=== PATIENT | female | born 1965 | race Caucasian/White ===

== ENCOUNTER 2016-09-28 14:39 | Observation (INO) | payer OTHER ==
[~2016-09-28] VITALS: Ht 154.9 cm; Wt 60.0 kg
[~2016-09-28 14:39] MED LIST: ADVAI100I PO; ALBUS PO; CITA20 PO; CLON.5 PO; DICY1TAB26 PO; DULE200A PO; MACR100C2 PO; MONT10TA2 PO; MONT4CHW2 CHEW; NAPR1TAB34 PO; OMEP20TA39 PO; TOPA100T8 PO; TOPI100 PO
[2016-09-28 14:44] VITALS: BP 154/65; PULSE 88; RESP 20; TEMP 97.9; O2SAT 100
--- NOTE | 2016-09-28 15:25 | PD ---
HPI Chief Complaint: Cardiac Complaint Time Seen by Provider: 15:25 Travel History International Travel<30 days: No Contact w/Intl Traveler<30days: No Traveled to known affect area: No History of Present Illness HPI 50-year-old female with a history of anxiety, depression, migraine headaches presents to the emergency department for evaluation of a 3 day history of heart palpitations and one-day history of chest pain. The patient states that for the past 3 days she has had intermittent heart palpitations, feeling as though her heart is racing and flip-flopping in her chest. States that this was aggravated with activities such as doing the dishes or the laundry area states that she was able to relieve the symptoms by taking an aspirin and lying down for a while. States that this morning she was still expressing the palpitations but now is also experiencing midsternal chest pressure and squeezing sensation. States that the chest pain is associated with lightheadedness, shortness of breath, nausea and a tingling sensation in her left arm and left jaw. She denies any swelling of the extremities, fever, chills, abdominal pain, vomiting, diarrhea, cough or cold symptoms. She denies any prior history of heart disease or ID. Denies any history of high blood pressure, high cholesterol, diabetes or blood clots. Denies any recent travel. Denies smoking history. States that her mother of a heart attack at age 53. Her father also had his first heart attack in his 60s. No other complaints. PFSH Past Medical History Asthma: Yes Anxiety: Yes Depression: Yes Cancer: No Cardiovascular Problems: Yes (HYPOTENSION) Diabetes: No Endocrine: No Fibromyalgia: Yes Gastrointestinal Disorders: Yes (GERD) Genitourinary: No Hepatitis: No Hiatal Hernia: No Immune Disorder: No Musculoskeletal: Yes (HERNIATED DISC) Neurologic: Yes (MIGRAINES) Psychiatric: Yes (DEPRESSION) Respiratory: Yes (ASTHMA) Migraines: Yes Thyroid Disease: No ?: Not Past Surgical History Abdominal Surgery: Yes (CHOLECYSTECTOMY) AICD: No Body Medical Devices: CERVICAL PLATE Cholecystectomy: Yes Gynecologic Surgery: Yes (HYSTERECTOMY) Hysterectomy: Yes Joint Replacement: No Pacemaker: No Other Surgery: Yes (SINUS SURGERY) Social History Alcohol Use: No Tobacco Use: No Substance Use: No Allergies-Medications (Allergen,Severity, Reaction): Coded Allergies: Latex (Verified Allergy, Mild, HIVES, 09/28/16) Zantac (Verified Allergy, Mild, HIVES, 09/28/16) Reported Meds & Prescriptions Reported Meds & Active Scripts Active Reported Topamax (Topiramate) 100 Mg Tab 100 Mg PO BID Omeprazole 40 Mg Cap 40 Mg PO DAILY Singulair (Montelukast Sodium) 10 Mg Tab 10 Mg PO HS Bentyl (Dicyclomine HCl) 10 Mg Cap 20 Mg PO TID Clonazepam 0.5 Mg Tab 0.5 Mg PO HS Citalopram (Citalopram Hydrobromide) 20 Mg Tab 20 Mg PO DAILY Advair Diskus Inh (Fluticasone-Salmeterol Inh) 100-50 Mcg/Blist Aer 1 Puff INH BID Rinse mouth after use. Review of Systems Except as stated in HPI: all other systems reviewed are Neg Physical Exam Narrative GENERAL: Well-nourished and well-developed pleasant female patient in no acute distress. She does appear to be in a mild amount of discomfort. SKIN: Warm and dry. HEAD: Normocephalic and atraumatic. EYES: No injection, drainage, or hyphema noted. PERRLA. EOMI. ENT: No nasal drainage noted. Oropharynx is clear. NECK: Supple and the trachea is midline. CARDIOVASCULAR: Regular rate and rhythm. RESPIRATORY: Breath sounds are equal bilaterally with no accessory muscle use, wheezing, rhonchi, or crackles. GASTROINTESTINAL: Abdomen is soft, non-tender, and nondistended. MUSCULOSKELETAL: No obvious deformities, swelling, cyanosis, or ecchymosis is present throughout the upper and lower extremities. Patient has full range of motion without any signs of neurovascular compromise. NEUROLOGICAL: Awake, alert, and oriented. Normal speech and gait. Cranial nerves are grossly intact. Data Data Last Documented VS Vital Signs Date Time Temp Pulse Resp B/P Pulse Ox O2 Delivery O2 Flow Rate FiO2 09/28/16 16:57 18 09/28/16 15:34 100 Room Air 09/28/16 14:44 97.9 88 154/65 Orders Electrocardiogram (09/28/16 14:54) Complete Blood Count With Diff (09/28/16 14:54) Ckmb (Isoenzyme) Profile (09/28/16 14:54) Troponin I (09/28/16 14:54) Chest, Single Ap (09/28/16 14:54) Iv Access Insert/Monitor (09/28/16 14:54) Ecg Monitoring (09/28/16 14:54) Oxygen Administration (09/28/16 14:54) Oximetry (09/28/16 14:54) Aspirin Chew (Aspirin Chew) (09/28/16 15:30) Nitroglycerin Sl (Nitrostat Sl) (09/28/16 15:30) Sodium Chlorid 0.9% 500 Ml Inj (Ns 500 M (09/28/16 15:30) Ondansetron Inj (Zofran Inj) (09/28/16 15:30) Aspirin Chew (Aspirin Chew) (09/28/16 15:45) Lipase (09/28/16 15:09) Comprehensive Metabolic Panel (09/28/16 15:09) Admit Order (Ed Use Only) (09/28/16 17:35) Acetamin-Hydrocod 325-5 Mg (Kelley 5-325 (09/28/16 17:45) Labs Laboratory Tests Test 09/28/16 15:09 White Blood Count 7.4 TH/MM3 Red Blood Count 4.64 MIL/MM3 Hemoglobin 14.5 GM/DL Hematocrit 41.8 % Mean Corpuscular Volume 90.1 FL Mean Corpuscular Hemoglobin 31.3 PG Mean Corpuscular Hemoglobin 34.8 % Concent Red Cell Distribution Width 11.8 % Platelet Count 289 TH/MM3 Mean Platelet Volume 7.8 FL Neutrophils (%) (Auto) 70.0 % Lymphocytes (%) (Auto) 24.1 % Monocytes (%) (Auto) 5.0 % Eosinophils (%) (Auto) 0.6 % Basophils (%) (Auto) 0.3 % Neutrophils # (Auto) 5.2 TH/MM3 Lymphocytes # (Auto) 1.8 TH/MM3 Monocytes # (Auto) 0.4 TH/MM3 Eosinophils # (Auto) 0.0 TH/MM3 Basophils # (Auto) 0.0 TH/MM3 CBC Comment DIFF FINAL Differential Comment Sodium Level 141 MEQ/L Potassium Level 3.7 MEQ/L Chloride Level 105 MEQ/L Carbon Dioxide Level 26.2 MEQ/L Anion Gap 10 MEQ/L Blood Urea Nitrogen 7 MG/DL Creatinine 0.85 MG/DL Estimat Glomerular Filtration 71 ML/MIN Rate Random Glucose 95 MG/DL Calcium Level 9.6 MG/DL Total Bilirubin 0.4 MG/DL Aspartate Amino Transf 81 U/L (AST/SGOT) Alanine Aminotransferase 78 U/L (ALT/SGPT) Alkaline Phosphatase 136 U/L Total Creatine Kinase 49 U/L Troponin I LESS THAN 0.02 NG/ML Total Protein 8.3 GM/DL Albumin 4.5 GM/DL Lipase 131 U/L MDM Medical Decision Making Medical Screen Exam Complete: Yes Emergency Medical Condition: Yes Differential Diagnosis ACS versus angina versus pleurisy versus anxiety Narrative Course 50-year-old female presents to the emergency department for evaluation of heart palpitations, chest pain radiating to the left arm and left face with nausea and lightheadedness. Patient is afebrile, vital signs are stable. Physical examination is unremarkable. IV access is obtained, labs have been drawn and sent. Patient is placed on cardiac telemetry and pulse oximetry monitoring. EKG shows sinus rhythm with no acute ST elevations or depressions. Patient is administered aspirin 243 mg and nitroglycerin sublingually. CBC is unremarkable. CMP shows slightly elevated LFTs but otherwise unremarkable. Troponin is less than 0.02 Chest x-ray is negative. Patient states that she did have some improvement of symptoms after receiving nitroglycerin tablets. He has remained stable while here in the emergency department. Labs are reassuring. Cardiac enzymes are negative, EKG is unremarkable. Patient will be placed in chest pain center for repeat cardiac enzymes, EKGs and possible stress testing. I discussed the case with my attending physician Dr. Woodard who is aware of the patients history, physical examination findings, and treatment plan. Diagnosis Primary Impression: Chest pain Qualified Code: R07.9 - Chest pain, unspecified type Admitting Information Admitting Physician Requests: Deepti Gonzalez Sep 28, 2016 15:25
[2016-09-28] MEDS ORDERED: ASPIRIN 81 MG CHEW TAB PO ONE ×2 (15:30→15:45)
[2016-09-28] MEDS ORDERED: ONDANSETRON HCL 4 MG/2 ML VIAL IV PUSH ONE (15:30)
[2016-09-28] MEDS ORDERED: SODIUM CHLORID 0.9% 500 ML INJ 500 ML IV ONE (15:30)
[2016-09-28 15:34] VITALS: RESP 18; O2SAT 100
[2016-09-28] MEDS: NITROGLYCERIN 0.4 MG SL 25 TABS/BTL SL SCH ×3 (15:40→16:56)
[2016-09-28] MEDS ORDERED: CITA20TA4 PO (15:48)
[2016-09-28] MEDS ORDERED: DICY10 PO (15:48)
[2016-09-28] MEDS ORDERED: ADVA100A INH (15:48)
[2016-09-28] MEDS ORDERED: MONT10TA2 PO (15:48)
[2016-09-28] MEDS ORDERED: TOPA100T11 PO (15:48)
[2016-09-28] MEDS ORDERED: OMEP40CA2 PO (15:48)
[2016-09-28] MEDS ORDERED: CLON0.5T PO (15:48)
--- NOTE | 2016-09-28 15:57 | RADRPT ---
EXAM DATE/TIME: 09/28/2016 15:36 [facility] COMPARISON: No previous studies available for comparison. INDICATIONS : Chest pain today. MEDICAL HISTORY : Gastroesophageal reflux disease. Asthma. Hypotension. SURGICAL HISTORY : Hysterectomy. Cholecystectomy. ENCOUNTER: Initial ACUITY: 1 day PAIN SCORE: 8/10 LOCATION: Bilateral chest FINDINGS: A single view of the chest demonstrates the lungs to be symmetrically aerated without evidence of mas s, infiltrate or effusion. The cardiomediastinal contours are unremarkable. Partially imaged lower cervical spine hardware. Osseous structures are intact. CONCLUSION: 1. No acute cardiopulmonary disease. Maxim Sequeira MD on September 28, 2016 at 15:54 Board Certified Radiologist. This report was verified electronically.
[2016-09-28 16:07] LABS: AUTOMATED NEUTROPHIL # 5.2 TH/MM3 (1.8-7.7); BASOPHIL % 0.3 % (0.0-2.0); EOSINOPHIL % 0.6 % (0.0-4.0); HEMATOCRIT 41.8 % (35.0-46.0); HEMO FLAGS DIFF FINAL; LYMPH % 24.1 % (9.0-44.0); LYMPHOCYTE # 1.8 TH/MM3 (1.0-4.8); MEAN CELL VOLUME 90.1 FL (80.0-100.0); MEAN CORPUSCULAR HEMOGLOBIN 31.3 PG (27.0-34.0); MEAN CORPUSCULAR HGB CONC 34.8 % (32.0-36.0); PLATELET COUNT 289 TH/MM3 (150-450); RED BLOOD COUNT 4.64 MIL/MM3 (4.00-5.30); RED CELL DISTRIBUTION WIDTH 11.8 % (11.6-17.2); WHITE BLOOD COUNT 7.4 TH/MM3 (4.0-11.0)
[2016-09-28 16:43] LABS: CREATINE KINASE 49 U/L (26-192)
[2016-09-28 17:14] LABS: GLOMERULAR FILTRATION RATE 71 ML/MIN (>89)
[2016-09-28 17:16] LABS: ALT (GPT) 78 U/L (10-53); AST (GOT) 81 U/L (15-37)
[2016-09-28 17:17] LABS: ALKALINE PHOSPHATASE 136 U/L (45-117); TOTAL BILIRUBIN ADULT 0.4 MG/DL (0.2-1.0)
[2016-09-28 17:31] LABS: ANION GAP 10 MEQ/L (5-15); BICARBONATE 26.2 MEQ/L (21.0-32.0); BLOOD UREA NITROGEN 7 MG/DL (7-18); CHLORIDE 105 MEQ/L (98-107); POTASSIUM 3.7 MEQ/L (3.5-5.1); SODIUM (NA) 141 MEQ/L (136-145)
[2016-09-28] MEDS ORDERED: ONDANSETRON HCL 4 MG/2 ML VIAL IV PRN (17:45)
[2016-09-28] MEDS ORDERED: SODIUM CHLORIDE 0.9% FLUSH 10 ML FLUSH IV FLUSH PRN (17:45)
[2016-09-28] MEDS ORDERED: ACETAMINOPHEN/HYDROcodone 325 MG/5 MG TAB PO ONE (17:45)
[2016-09-28] MEDS ORDERED: ACETAMINOPHEN 500 MG CPLT PO PRN (17:45)
[2016-09-28 17:50] VITALS: BP 149/66; PULSE 76; RESP 18; O2SAT 99
[2016-09-28 18:59] LABS: CREATINE KINASE 42 U/L (26-192)
[2016-09-28 19:57] VITALS: BP 113/69; PULSE 60; RESP 18; TEMP 97.8; O2SAT 100
[2016-09-28] MEDS: SODIUM CHLORIDE 0.9% FLUSH 10 ML FLUSH IV FLUSH SCH (21:24)
[2016-09-28 22:01] LABS: CREATINE KINASE 36 U/L (26-192)
[2016-09-28 23:24] VITALS: BP 126/76; PULSE 76; RESP 18; TEMP 98; O2SAT 74
[2016-09-29] VITALS (8 sets, daily range): BP systolic 117–133; BP diastolic 61–69; PULSE 55–77; RESP 17–18; TEMP 97.9–98.1; O2SAT 98–100
[2016-09-29] MEDS ORDERED: MORPHINE SULFATE 4 MG/ML INJ IV ONE (02:15)
--- NOTE | 2016-09-29 07:55 | HHI.HP ---
HPI Primary Care Physician Rolo Carr MD Chief Complaint Chest pain and palpitations History of Present Illness 50-year-old female past medical history migraines, asthma, anxiety, depression, and GERD presents to emergency room for further evaluation. Endorses constant waxing and waning of palpitations and chest pain. Had a routine teachers' aide appointment yesterday told MD about chest palpitations and chest pain was directed to come to ER. Palpitations began Sunday, described as constant that varied in intensity. No known precipitating factors and denies past feelings of palpitations. Chest discomfort onset began yesterday upon awakening. Located substernally. Described as a squeezing pain. Pain radiated to her left shoulder, left arm and left side of neck causing areas to become numb. No known trauma or injury. Duration has been constant waxing and waning in intensity. Associated symptoms include occasional shortness of breath described as "I cannot catch my breath," nausea and diaphoresis. No known precipitating or relieving factors. Has been using intermittent full-strength aspirin with some relief. Denies any previous chest pain in the past. Review of Systems General: No fatigue,weakness, fever, chills, or recent illness. States she's been in her general state of health other than stated above. HEENT: No BENITEZ, no vision changes, no nasal congestion or drainage, no dysphasia CV: As stated above. Currently has chest pressure and feelings of palpitations. Endorses palpitations since admission to hospital. No dizziness RESP: No SOB, cough, wheeze, or recent URI. History of asthma, states asthma is stable according to her teachers' aide which she seen yesterday. GI: Nausea has improved. Loose stools daily since Sunday. No vomiting, pain, distention, melena, or blood in the stool. No change in appetite. : No dysuria, urgency, frequency, or hematuria EXT: No lower leg edema, no paraesthesias MS: No discomfort or change in ROM NEURO: No change in memory, dizziness, difficulty with balance, LOC, motor/ sensory deficits PSYCH: History of anxiety and depression and stable on current medications. SKIN: No rashes, no concerning lesions Past Family Social History Allergies: Coded Allergies: Latex (Verified Allergy, Mild, HIVES, 09/28/16) Zantac (Verified Allergy, Mild, HIVES, 09/28/16) Past Medical History Migraines, asthma, GERD, herniated disc, anxiety, depression Past Surgical History Cholecystectomy, hysterectomy, neck surgery, right rotator cuff repair Reported Medications Active Reported Topamax (Topiramate) 100 Mg Tab 100 Mg PO BID Omeprazole 40 Mg Cap 40 Mg PO DAILY Singulair (Montelukast Sodium) 10 Mg Tab 10 Mg PO HS Bentyl (Dicyclomine HCl) 10 Mg Cap 20 Mg PO TID Clonazepam 0.5 Mg Tab 0.5 Mg PO HS Citalopram (Citalopram Hydrobromide) 20 Mg Tab 20 Mg PO DAILY Advair Diskus Inh (Fluticasone-Salmeterol Inh) 100-50 Mcg/Blist Aer 1 Puff INH BID Rinse mouth after use. Spriva inhaler Active Ordered Medications Current Medications Medications (Trade) Dose Ordered Sig/Mechelle Route Start Time Stop Time Status Last Admin (Tylenol) 500 mg Q4H PRN PO 09/28/16 17:45 (Zofran Inj) 4 mg Q6H PRN IV 09/28/16 17:45 Family History Mother from [place] age 53. Father heart blockages at age 65, past with [place] at 74. No siblings with early onset cardiovascular disease. Social History No known diabetes, hypertension, or hyperlipidemia. Lifelong nonsmoker. Denies any alcohol or illegal drug use. Endorses sedentary lifestyle, disabled. Past cardiac testing None Physical Exam Vital Signs Vital Signs Date Time Temp Pulse Resp B/P Pulse Ox O2 Delivery O2 Flow Rate FiO2 09/29/16 07:45 98.1 66 17 117/61 100 09/29/16 05:21 97.9 77 18 119/64 99 09/29/16 01:59 98.0 58 18 121/69 98 09/29/16 00:12 55 09/28/16 23:24 98.0 76 18 126/76 74 09/28/16 19:57 97.8 60 18 113/69 100 09/28/16 18:22 18 09/28/16 17:50 76 18 149/66 99 Room Air 09/28/16 16:57 18 09/28/16 15:34 100 Room Air 09/28/16 15:34 18 100 Room Air 09/28/16 14:44 97.9 88 20 154/65 100 Room Air Physical Exam GENERAL: Alert WN, WD, NAD, mildly anxious, female HEAD: NC, AT EYES: Sclera clear, pupils equal and round ENT: Mucous membranes pink and moist NECK: Supple, no masses, trachea midline CV: RRR, without murmur, rub, gallop, no JVD, S1-S2 no S3-S4. RESP: Clear lungs throughout bilateral, no crackles, wheeze, rhonchi, symmetrical chest rise, nonlabored, able to speak in full sentences ABD: Soft, NT, ND, no masses, positive bowel tones BACK: No CVAT EXT: Pulses +24, no dependent edema MS: Normal tone 4 extremities, nontender, no obvious deformities, full range of motion NEURO: CN II through CN XII grossly intact, motor strength 5/5, gait WNL PSYCH: A+O 3, pleasant affect, appropriate speech, appropriate mood and affect , insight and judgment SKIN: Normal turgor, normal texture, no lesions, no rashes Laboratory Laboratory Tests Test 09/28/16 09/28/16 09/28/16 15:09 18:05 21:21 White Blood Count 7.4 Red Blood Count 4.64 Hemoglobin 14.5 Hematocrit 41.8 Mean Corpuscular Volume 90.1 Mean Corpuscular Hemoglobin 31.3 Mean Corpuscular Hemoglobin 34.8 Concent Red Cell Distribution Width 11.8 Platelet Count 289 Mean Platelet Volume 7.8 Neutrophils (%) (Auto) 70.0 Lymphocytes (%) (Auto) 24.1 Monocytes (%) (Auto) 5.0 Eosinophils (%) (Auto) 0.6 Basophils (%) (Auto) 0.3 Neutrophils # (Auto) 5.2 Lymphocytes # (Auto) 1.8 Monocytes # (Auto) 0.4 Eosinophils # (Auto) 0.0 Basophils # (Auto) 0.0 CBC Comment DIFF FINAL Differential Comment Sodium Level 141 Potassium Level 3.7 Chloride Level 105 Carbon Dioxide Level 26.2 Anion Gap 10 Blood Urea Nitrogen 7 Creatinine 0.85 Estimat Glomerular Filtration 71 Rate Random Glucose 95 Calcium Level 9.6 Total Bilirubin 0.4 Aspartate Amino Transf 81 (AST/SGOT) Alanine Aminotransferase 78 (ALT/SGPT) Alkaline Phosphatase 136 Total Creatine Kinase 49 42 36 Troponin I LESS THAN 0.02 LESS THAN 0.02 LESS THAN 0.02 Total Protein 8.3 Albumin 4.5 Lipase 131 Result Diagram: 09/28/16 1509 09/28/16 1509 Imaging Last Impressions Chest X-Ray 09/28/16 1454 Signed Impressions: Service Date/Time: , September 28, 2016 15:36 - CONCLUSION: 1. No acute cardiopulmonary disease. Maxim Sequeira MD Course EKGs Normal sinus bradycardic rhythm, no ST or T-segment changes Cardiac rhythm monitoring reviewed-no arrhythmias or tachy rhythms recorded during admission. Assessment and Plan Assessment and Plan #1 Chest painadmitted to chest pain center. Ruled out with serial EKGs and cardiac enzymes. Seen and evaluated by Dr. Danya Snow. Chemical stress test ordered as patient states she is unable to walk on treadmill due to chronic back pain. If stress test unremarkable will discharge later this afternoon with follow-up with PCP. #2 Musculoskeletal pain-Toradol 30 mg IV 1 dose, when discharged will provide with prescription strength ibuprofen 5 days followed by 5 days over-the- counter strength ibuprofen, instructed to take with food. May use heating pad to affected area. #3 Migrainescontinue Topamax #4 GERDcontinue omeprazole #5 Asthmacontinue Singulair, Advair #6 Depressioncontinue citalopram 12:25 Antonina scan results reviewed with Dr. Snow. Will DC this afternoon on aspirin and a vasodilator. Follow-up to PCP in 1 week. Brooke Longoria Sep 29, 2016 07:55
[2016-09-29] MEDS ORDERED: NITROGLYCERIN 0.4 MG SL 25 TABS/BTL SL PRN (08:00)
[2016-09-29] MEDS: SODIUM CHLORIDE 0.9% FLUSH 10 ML FLUSH IV FLUSH SCH (08:21)
[2016-09-29] MEDS ORDERED: KETOROLAC TROMETHAMINE 30 MG/ML (IVP) VIAL IV PUSH ONE (08:30)
[2016-09-29] MEDS ORDERED: ASPIRIN 325 MG TAB PO SCH (09:00)
[2016-09-29] MEDS ORDERED: REGADENOSON INJ 0.4 MG/5 ML SYR ONE (09:51)
--- NOTE | 2016-09-29 12:02 | RADRPT ---
EXAM DATE/TIME: 09/29/2016 09:31 [facility] COMPARISON: No previous studies available for comparison. INDICATIONS : Chest pain with palpitations. Angina. Abnormal EKG. DOSE: 25.8 mCi Tc99m Myoview at stress. 8.1 mCi Tc99m Myoview at rest. 0.4 mg Lexiscan STRESS SYMPTOMS: Nausea and short of breath. EJECTION FRACTION: > 70% MEDICAL HISTORY : Hypertension. SURGICAL HISTORY : Cholecystectomy. Hysterectomy. Inguinal hernia repair. ENCOUNTER: Initial ACUITY: 1 day PAIN SCALE: 2/10 LOCATION: Bilateral chest TECHNIQUE: The patient underwent pharmacologic stress with infusion of prescribed dose. Continuous ECG tracing was monitored during stress. Gated SPECT imaging was performed after stress and conventional SPECT i maging was performed at rest. The examination was performed on a SPECT/CT scanner, both attenuation and non-corrected datasets were reviewed. FINDINGS: The best perfused myocardium at stress is the septum of followed by the inferior wall. There is mini mal redistribution in the mid anterior wall extending to the apex. In spite of this there is normal wall motion. Ejection fraction is 70%. CONCLUSION: Minimal stress-induced redistribution of borderline significance with normal wall motion. RISK CATEGORY: Low (<1% Annual Mortality Rate) Miguel Angel Zambrano MD FACR on September 29, 2016 at 11:58 Board Certified Radiologist. This report was verified electronically.
[2016-09-29] MEDS ORDERED: AMLO2.5T PO (13:14)
[2016-09-29] MEDS ORDERED: ASPI81CH CHEW (13:14)
--- NOTE | 2016-09-29 13:15 | HHI.DCPOC ---
Discharge Care Plan Diagnosis: (1) Atypical chest pain (2) Abnormal stress test Goals to Promote Your Health * To prevent worsening of your condition and complications * To maintain your health at the optimal level Directions to Meet Your Goals Take your medications as prescribed Follow your dietary instruction Follow activity as directed Keep your appointments as scheduled Take your immunizations and boosters as scheduled If your symptoms worsen call your PCP, if no PCP go to Urgent Care Center or Emergency Room Smoking is Dangerous to Your Health. Avoid second hand smoke Call the 24-hour hour crisis hotline for domestic abuse at Brooke Longoria Sep 29, 2016 13:15
[2016-09-29] MEDS ORDERED: CITALOPRAM HYDROBROMIDE 20 MG TAB PO SCH (13:30)
[2016-09-29] MEDS ORDERED: TOPIRAMATE 100 MG TAB PO SCH (13:30)
[2016-09-29] MEDS ORDERED: DICYCLOMINE HCL 10 MG CAP PO SCH (13:30)
[2016-09-29] MEDS ORDERED: IBUP800T23 PO (13:30)
[2016-09-29] MEDS ORDERED: BUDESONIDE-FORMOTEROL 80/4.5 MCG INHALER INH SCH (13:45)
[2016-09-29] MEDS ORDERED: PANTOPRAZOLE SOD 40 MG DELAYED RELEASE TAB PO SCH (13:45)
--- NOTE | 2016-09-29 15:16 | TR ---
Date Performed: 09/29/2016 Time Performed: 10:21:37 DOCTOR: Danya Snow DRUG LIST: CLINICAL HISTORY: CHEST PAIN REASON FOR TEST: REASON FOR ENDING: OBSERVATION: CONCLUSION: Lexiscan stress test was performed under standard four minute protocol. Radionuclid e was injected one minute prior to ending the test. No electrocardiographic abormalities were present to suggest ischemia. Nuclear imaging and interpretation are pending. COMMENTS:
--- NOTE | 2016-09-29 15:18 | EKG ---
Date Performed: 09/29/2016 Time Performed: 02:06:03 PTAGE: 50 years EKG: SINUS BRADYCARDIA POSSIBLE RIGHT VENTRICULAR CONDUCTION DELAY BORDERLINE ECG Since PREVIOUS TRACING , no significant change noted PREVIOUS TRACIN09/28/2016 21.00 DOCTOR: Danya Snow Interpretating Date/Time 09/29/2016 15:17:18
--- NOTE | 2016-09-29 15:22 | EKG ---
Date Performed: 09/28/2016 Time Performed: 21:00:26 PTAGE: 50 years EKG: Sinus rhythm NORMAL ECG Since PREVIOUS TRACING , no significant change noted PREVIOUS TRACIN09/28/2016 18.10 DOCTOR: Danya Snow Interpretating Date/Time 09/29/2016 15:21:45
--- NOTE | 2016-09-29 15:23 | EKG ---
Date Performed: 09/28/2016 Time Performed: 18:10:00 PTAGE: 50 years EKG: SINUS BRADYCARDIA BORDERLINE ECG RSR' Since PREVIOUS TRACING , no significant change noted PREVIOUS TRACIN09/28/2016 14.58 DOCTOR: Danya Snow Interpretating Date/Time 09/29/2016 15:22:39
--- NOTE | 2016-09-29 15:23 | EKG ---
Date Performed: 09/28/2016 Time Performed: 14:58:51 PTAGE: 50 years EKG: Sinus rhythm LOW QRS VOLTAGE IN PRECORDIAL LEADS INCOMPLETE RIGHT BUNDLE BRANCH BLOCK BORDERLINE ECG NO PREVIOUS TRACING DOCTOR: Danya Snow Interpretating Date/Time 09/29/2016 15:22:54
[2016-09-29] MEDS ORDERED: MONTELUKAST SODIUM 10 MG TAB PO SCH (21:00)
== END 2016-09-29 14:26 | disposition home or self-care (01) ==
LOC: NEPE 14:39 → NEDA 17:36 → NEPHCDU 18:40
PROVIDERS: ADMIT Internal Medicine Interventional Cardiology; ATTEND Internal Medicine Interventional Cardiology
DX: R07.89 Other chest pain (principal); J45.909 Unspecified asthma, uncomplicated; K21.9 Gastro-esophageal reflux disease without esophagitis; G43.909 Migraine, unspecified, not intractable, without status migrainosus; M79.7 Fibromyalgia; G89.29 Other chronic pain; M54.9 Dorsalgia, unspecified; F32.9 Major depressive disorder, single episode, unspecified; F41.9 Anxiety disorder, unspecified; Z88.8 Allergy status to other drugs, medicaments and biological substances; Z91.040 Latex allergy status; Z79.51 Long term (current) use of inhaled steroids; Z82.49 Family history of ischemic heart disease and other diseases of the circulatory system
CPT/HCPCS: 71010; 78452; 80053; 82550; 83690; 84484; 85025; 93005; 93017; 96361; 96374; 96375; 96376; 99285; A9502; G0378; J1885; J2270; J2405; J2785; J7040

== ENCOUNTER → 2016-11-03 | Day surgery (SDC) | payer OTHER ==
[~2016-11-03] VITALS: Ht 154.9 cm; Wt 59.0 kg
[~2016-11-03] MED LIST changes: +ACETAMINOPHEN 1000 MG/100 ML VIAL IV ONE; +ACETAMINOPHEN/HYDROcodone 325 MG/5 MG TAB ONE; +ADVA100A INH; -ADVAI100I PO; -ALBUS PO; +AMLO2.5T PO; +APREPITANT 40 MG CAP ONE; +ASPI81CH CHEW; +CHLORHEXIDINE GLUCONATE 2 % 1 PACK (2 CLOTHS) TOPICAL PRN; -CITA20 PO; +CITA20TA4 PO; -CLON.5 PO; +CLON0.5T PO; +DICY10 PO; -DICY1TAB26 PO; -DULE200A PO; +HYDROmorphone HCL PF 1 MG/ML VIAL ONE; +IBUP800T23 PO; +INSULIN HUMAN REGULAR 1,000 UNITS/10 ML VIAL SQ PRN; +KETOROLAC TROMETHAMINE 30 MG/ML (IVP) VIAL ONE; +LACTATED RINGER'S 1000 ML IV PRN; -MACR100C2 PO; +MEPERIDINE HCL 25 MG/ML VIAL ONE; +METOPROLOL TARTRATE 25 MG TAB PO PRN; +MIDAZOLAM HCL 2 MG/2 ML VIAL ONE; -MONT4CHW2 CHEW; +MORPHINE SULFATE 4 MG/ML INJ ONE; -NAPR1TAB34 PO; -OMEP20TA39 PO; +OMEP40CA2 PO; +ONDANSETRON HCL 4 MG/2 ML VIAL IV PUSH ONE; +ONDANSETRON HCL 4 MG/2 ML VIAL ONE; +POVIDONE IODINE 5% (ANTISEPSIS KIT) 4 APPLICATIONS EACH NARE PRN; +PROPOFOL 200 MG/20 ML AMP IV ONE; +SODIUM CHLORID 0.9% 500 ML IV PRN; +TOPA100T11 PO; -TOPA100T8 PO; -TOPI100 PO; +VITA250T5 PO; +fentaNYL CITRATE 250 MCG/5 ML AMP ONE
[2016-11-03 11:23] VITALS: BP 129/85; PULSE 74; RESP 16; TEMP 97.8; O2SAT 100
[2016-11-03 16:15] VITALS: BP 94/48; PULSE 57; RESP 16; TEMP 97.9; O2SAT 98
--- NOTE | 2016-11-03 21:51 | MP ---
cc: ANGEL MERLOS M.D. DATE OF SURGERY 11/03/[address] Angel Merlos PREOPERATIVE DIAGNOSIS Bilateral carpal tunnel syndrome. POSTOPERATIVE DIAGNOSIS Bilateral carpal tunnel syndrome. PROCEDURE Bilateral carpal tunnel release. PROCEDURE IN DETAIL The patient was first placed on the operating table in the supine position and adequate general anesthesia was administered by the anesthesiologist. Both upper extremities were prepped and draped in the usual sterile fashion. A time-out was called and the patient's name, location and procedure fully verified. Beginning first with the right hand an Esmarch bandage was used to exsanguinate the right upper extremity and a pneumatic tourniquet was inflated at the forearm to 200. The curved incision was then made over the carpal tunnel and then taken down through the subcutaneous tissues. Bleeding points were nil. The palmaris tendon area was reflected and dissected free and retracted to the ulnar side and the transverse carpal ligament which was extremely thick was then transected longitudinally beginning from proximal to distal direction along the ulnar border of the median nerve. After complete release the nerve was inspected and found to be flattened and compressed but intact. It was irrigated with normal saline solution. The wound was then closed with interrupted simple sutures of 4-0 nylon. Xeroform gauze was applied over the wound, a bulky dressing was applied over this at which time the tourniquet was deflated after 15 minutes. Reexamination of the fingers revealed adequate return of circulation. Sponge count, needle count and instrument counts were reported correct x2 for the right upper extremity. Attention was then turned to the opposite left upper extremity where an identical procedure was carried out with the exception of the fact that the tourniquet did not appear to be adequately sufficient at 200 and did eventually have to be raised to 300. We did encounter some oozing prior to that and this was controlled adequately with the electrocautery. The median nerve appeared to be similar, being obviously severely flattened and compressed. The wound was then closed after irrigation in a similar fashion with interrupted sutures of 4-0 nylon. Once again, same dressing was applied to the left hand and wrist. That tourniquet was then deflated and examination of the fingertips revealed adequate return of circulation. The tourniquet time was 20 minutes. Both procedures were tolerated well. The patient was transferred to the recovery room in satisfactory and stable condition. MD BERTHA Haji /2:02 PM /9:45 PM
== END | disposition home or self-care (01) ==
LOC: PHSDC 10:47
PROVIDERS: ATTEND Orthopaedic Surgery
DX: G56.03 Carpal tunnel syndrome, bilateral upper limbs (principal); J45.909 Unspecified asthma, uncomplicated; E78.00 Pure hypercholesterolemia, unspecified; K21.9 Gastro-esophageal reflux disease without esophagitis
CPT/HCPCS: 01810; 64721; J0131; J1170; J1885; J2175; J2250; J2270; J2405; J3010; J7120; J8501

== ENCOUNTER 2017-03-02 14:35 | Emergency (ER) | payer OTHER ==
[~2017-03-02] VITALS: Ht 154.9 cm; Wt 59.0 kg
[~2017-03-02 14:35] MED LIST changes: -ACETAMINOPHEN 1000 MG/100 ML VIAL IV ONE; -ACETAMINOPHEN/HYDROcodone 325 MG/5 MG TAB ONE; -APREPITANT 40 MG CAP ONE; +ASPI-516 CHEW; -ASPI81CH CHEW; -CHLORHEXIDINE GLUCONATE 2 % 1 PACK (2 CLOTHS) TOPICAL PRN; -HYDROmorphone HCL PF 1 MG/ML VIAL ONE; +IBUP1TAB7 PO; -IBUP800T23 PO; -INSULIN HUMAN REGULAR 1,000 UNITS/10 ML VIAL SQ PRN; -KETOROLAC TROMETHAMINE 30 MG/ML (IVP) VIAL ONE; -LACTATED RINGER'S 1000 ML IV PRN; -MEPERIDINE HCL 25 MG/ML VIAL ONE; -METOPROLOL TARTRATE 25 MG TAB PO PRN; -MIDAZOLAM HCL 2 MG/2 ML VIAL ONE; -MORPHINE SULFATE 4 MG/ML INJ ONE; -ONDANSETRON HCL 4 MG/2 ML VIAL IV PUSH ONE; -ONDANSETRON HCL 4 MG/2 ML VIAL ONE; -POVIDONE IODINE 5% (ANTISEPSIS KIT) 4 APPLICATIONS EACH NARE PRN; -PROPOFOL 200 MG/20 ML AMP IV ONE; -SODIUM CHLORID 0.9% 500 ML IV PRN; -TOPA100T11 PO; +TOPI100 PO; -fentaNYL CITRATE 250 MCG/5 ML AMP ONE
[2017-03-02 14:44] VITALS: BP 134/81; PULSE 83; RESP 18; TEMP 98.3; O2SAT 99
[2017-03-02 14:45] VITALS: RESP 18; O2SAT 98
[2017-03-02] MEDS ORDERED: SODIUM CHLORIDE 0.9% FLUSH 10 ML FLUSH IVF PRN (15:00)
--- NOTE | 2017-03-02 15:13 | PD ---
HPI Chief Complaint: Seizure Time Seen by Provider: 14:48 Travel History International Travel<30 days: No Contact w/Intl Traveler<30days: No Traveled to known affect area: No History of Present Illness HPI 51-year-old female with history of seizure disorder, presents after having a witnessed tonic-clonic seizure by her family. Paramedics arrived, the patient was not actively seizing. They state that she was postictal. Report was that she had less than 2 minutes of tonic-clonic activity. The patient is still slightly postictal. She states that she has not been taking her Dilantin because it is difficult to feel because of the expenses. She does have a prescription for it however has not filled it. She is unable tell me when her last seizure was. She reports pain towards the back of her head. Report was that she did not fall and strike her head. There was no reported incontinence. PFSH Past Medical History Asthma: Yes Anxiety: Yes Depression: Yes Heart Rhythm Problems: No Cancer: No Cardiac Catheterization: No Cardiovascular Problems: Yes (2 abnormal ekgs, less functioning valve in Feb 2016) High Cholesterol: Yes Congestive Heart Failure: No Diabetes: No Endocrine: No Fibromyalgia: Yes Gastrointestinal Disorders: Yes (GERD) Genitourinary: No Hepatitis: No Hiatal Hernia: Yes Immune Disorder: No Musculoskeletal: Yes (HERNIATED DISC CERVICAL/LUMBAR, ARTHRITIS) Neurologic: Yes (MIGRAINES) Psychiatric: Yes (DEPRESSION) Respiratory: Yes (ASTHMA) Migraines: Yes Thyroid Disease: No ?: Unknown Past Surgical History Abdominal Surgery: Yes (CHOLECYSTECTOMY) AICD: No Body Medical Devices: CERVICAL PLATE Cardiac Surgery: No Cholecystectomy: Yes Coronary Artery Bypass Graft: No Ear Surgery: No Endocrine Surgery: No Eye Surgery: No Genitourinary Surgery: No Gynecologic Surgery: Yes (HYSTERECTOMY) Hysterectomy: Yes Joint Replacement: No Oral Surgery: No Pacemaker: No Thoracic Surgery: No Other Surgery: Yes (SINUS SURGERY) Social History Alcohol Use: No Tobacco Use: No Substance Use: No Allergies-Medications (Allergen,Severity, Reaction): Coded Allergies: latex (Unverified Allergy, Mild, HIVES, 12/05/16) ranitidine (Unverified Allergy, Mild, HIVES, 12/05/16) Reported Meds & Prescriptions Reported Meds & Active Scripts Active Phenytoin Extended 100 Mg Cap 100 Mg PO TID Ibuprofen 800 Mg Tab 800 Mg PO Q8H PRN 5 Days Amlodipine (Amlodipine Besylate) 2.5 Mg Tab 5 Mg PO DAILY Aspirin 81 Mg Chew 81 Mg CHEW DAILY Reported Vitamin B-12 (Cyanocobalamin) 250 Mcg Tab 250 Mcg PO DAILY Topamax (Topiramate) 100 Mg Tab 100 Mg PO BID Omeprazole 40 Mg Cap 40 Mg PO DAILY Singulair (Montelukast Sodium) 10 Mg Tab 10 Mg PO HS Bentyl (Dicyclomine HCl) 10 Mg Cap 20 Mg PO TID Clonazepam 0.5 Mg Tab 0.5 Mg PO HS Citalopram (Citalopram Hydrobromide) 20 Mg Tab 20 Mg PO DAILY Advair Diskus Inh (Fluticasone-Salmeterol Inh) 100-50 Mcg/Blist Aer 1 Puff INH BID Rinse mouth after use. Review of Systems Except as stated in HPI: all other systems reviewed are Neg General / Constitutional: No: Fever, Chills HENT: Positive: Headaches, No: Neck Pain (stated occiput) Cardiovascular: No: Chest Pain or Discomfort, Palpitations, Irregular Rhythm Respiratory: No: Cough, Shortness of Breath Gastrointestinal: No: Nausea, Vomiting, Abdominal Pain Genitourinary: No: Dysuria, Incontinence Musculoskeletal: No: Weakness, Pain Skin: No Rash, No Itching, No Alopecia Neurologic: Positive: Headache (posterior occiput), Seizures, Other (postictal) , No: Change in Mentation Physical Exam Narrative GENERAL: Well developed well-nourished female in no acute rest her distress. SKIN: Focused skin assessment warm/dry. HEAD: Atraumatic. Normocephalic. EYES: No scleral icterus. No injection or drainage. ENT: No nasal bleeding or discharge. Mucous membranes pink and moist. There are no tongue lacerations. NECK: Trachea midline. Supple. CARDIOVASCULAR: Regular rate and rhythm. No murmur appreciated. RESPIRATORY: No accessory muscle use. Clear to auscultation. Breath sounds equal bilaterally. GASTROINTESTINAL: Abdomen soft, non-tender, nondistended. Hepatic and splenic margins not palpable. MUSCULOSKELETAL: No obvious deformities. No clubbing. No cyanosis. No edema. NEUROLOGICAL: Awake and mildly postictal. No obvious cranial nerve deficits. Motor grossly within normal limits. Normal speech. PSYCHIATRIC: Appropriate mood and affect; insight and judgment normal. Data Data Last Documented VS Vital Signs Date Time Temp Pulse Resp B/P (MAP) Pulse Ox O2 Delivery O2 Flow Rate FiO2 03/02/17 14:45 18 98 Room Air 03/02/17 14:44 98.3 83 134/81 (98) Orders Orders Complete Blood Count With Diff (03/02/17 14:49) Phenytoin (Dilantin) (03/02/17 14:49) Ct Brain W/O Iv Contrast(Rout) (03/02/17 ) Blood Glucose (03/02/17 14:49) Ecg Monitoring (03/02/17 14:49) Iv Access Insert/Monitor (03/02/17 14:49) Oximetry (03/02/17 14:49) Comprehensive Metabolic Panel (03/02/17 14:49) Sodium Chloride 0.9% Flush (Ns Flush) (03/02/17 15:00) Phenytoin Inj (Dilantin Inj) (03/02/17 16:30) Morphine Inj (Morphine Inj) (03/02/17 16:30) Potassium Chloride (Kcl) (03/02/17 16:30) Labs Laboratory Tests Test 03/02/17 14:45 White Blood Count 7.8 TH/MM3 Red Blood Count 4.35 MIL/MM3 Hemoglobin 14.1 GM/DL Hematocrit 40.9 % Mean Corpuscular Volume 94.1 FL Mean Corpuscular Hemoglobin 32.5 PG Mean Corpuscular Hemoglobin Concent 34.6 % Red Cell Distribution Width 13.2 % Platelet Count 281 TH/MM3 Mean Platelet Volume 7.3 FL Neutrophils (%) (Auto) 63.8 % Lymphocytes (%) (Auto) 27.5 % Monocytes (%) (Auto) 6.2 % Eosinophils (%) (Auto) 1.8 % Basophils (%) (Auto) 0.7 % Neutrophils # (Auto) 5.0 TH/MM3 Lymphocytes # (Auto) 2.2 TH/MM3 Monocytes # (Auto) 0.5 TH/MM3 Eosinophils # (Auto) 0.1 TH/MM3 Basophils # (Auto) 0.1 TH/MM3 CBC Comment DIFF FINAL Differential Comment Blood Urea Nitrogen 11 MG/DL Creatinine 0.87 MG/DL Random Glucose 111 MG/DL Total Protein 7.4 GM/DL Albumin 3.9 GM/DL Calcium Level 8.6 MG/DL Alkaline Phosphatase 95 U/L Aspartate Amino Transf (AST/SGOT) 19 U/L Alanine Aminotransferase (ALT/SGPT) 33 U/L Total Bilirubin 0.4 MG/DL Sodium Level 140 MEQ/L Potassium Level 3.3 MEQ/L Chloride Level 111 MEQ/L Carbon Dioxide Level 19.3 MEQ/L Anion Gap 10 MEQ/L Estimat Glomerular Filtration Rate 68 ML/MIN Phenytoin (Dilantin) Level LESS THAN 0.4 MCG/ML MDM Medical Decision Making Medical Screen Exam Complete: Yes Emergency Medical Condition: Yes Differential Diagnosis Breakthrough seizure versus subtherapeutic Dilantin level versus metabolic derangement. Narrative Course 81-year-old female history seizure disorder, presents with reported seizure activity. The patient was postictal on scene by paramedics. She was slightly postictal when she arrived however she has now appropriate and awake. Patient reported headache. She states she gets headaches after seizures. She was given 2 mg of morphine. CAT scan shows no evidence acute findings. Elect lites are within normal limits. Serum Dilantin level was 0. She reports that she's been having difficult time filling the Dilantin. I've written her prescription for phenytoin and informed her that this may be less expensive than the brand name Dilantin. She's been loaded with 1 g of Dilantin. She'll be discharged home and told to follow up with her neurologist. Diagnosis Primary Impression: Seizure Additional Impression: Subtherapeutic serum dilantin level Med/Other Pt SpecificInfo: Prescription(s) given Scripts Phenytoin Extended (Phenytoin Extended) 100 Mg Cap 100 MG PO TID for Control Seizures, #90 CAP 0 Refills Prov: Joe Martinez MD 03/02/17 Disposition: 01 DISCHARGE HOME Condition: Stable Joe Martinez MD Mar 02, 2017 15:13
[2017-03-02 15:24] LABS: BASOPHIL # 0.1 TH/MM3 (0-0.2); BASOPHIL % 0.7 % (0.0-2.0); EOSINOPHIL # 0.1 TH/MM3 (0-0.4); EOSINOPHIL % 1.8 % (0.0-4.0); HEMATOCRIT 40.9 % (35.0-46.0); HEMO FLAGS DIFF FINAL; LYMPH % 27.5 % (9.0-44.0); LYMPHOCYTE # 2.2 TH/MM3 (1.0-4.8); MEAN CELL VOLUME 94.1 FL (80.0-100.0); MEAN CORPUSCULAR HEMOGLOBIN 32.5 PG (27.0-34.0); MEAN CORPUSCULAR HGB CONC 34.6 % (32.0-36.0); MONO % 6.2 % (0.0-8.0); NEUT % 63.8 % (16.0-70.0); PLATELET COUNT 281 TH/MM3 (150-450); RED BLOOD COUNT 4.35 MIL/MM3 (4.00-5.30); RED CELL DISTRIBUTION WIDTH 13.2 % (11.6-17.2); WHITE BLOOD COUNT 7.8 TH/MM3 (4.0-11.0)
[2017-03-02 15:40] LABS: ANION GAP 10 MEQ/L (5-15); AST (GOT) 19 U/L (15-37); BICARBONATE 19.3 MEQ/L (21.0-32.0); BLOOD UREA NITROGEN 11 MG/DL (7-18); CHLORIDE 111 MEQ/L (98-107); GLOMERULAR FILTRATION RATE 68 ML/MIN (>89); POTASSIUM 3.3 MEQ/L (3.5-5.1); SODIUM (NA) 140 MEQ/L (136-145)
[2017-03-02 15:43] LABS: ALKALINE PHOSPHATASE 95 U/L (45-117); ALT (GPT) 33 U/L (10-53); TOTAL BILIRUBIN ADULT 0.4 MG/DL (0.2-1.0)
--- NOTE | 2017-03-02 16:23 | RADRPT ---
EXAM DATE/TIME: 03/02/2017 15:56 [facility] COMPARISON: No previous studies available for comparison. INDICATIONS : Seizure, headache. RADIATION DOSE: 28.42 CTDIvol (mGy) MEDICAL HISTORY : Cardiovascular disease. Epilepsy SURGICAL HISTORY : Hysterectomy. Cholecystectomy. ENCOUNTER: Initial ACUITY: 1 day PAIN SCALE: 0/10 LOCATION: cranial TECHNIQUE: Multiple contiguous axial images were obtained of the head. Using automated exposure control and adj ustment of the mA and/or kV according to patient size, radiation dose was kept as low as reasonably a chievable to obtain optimal diagnostic quality images. DICOM format image data is available electro nically for review and comparison. FINDINGS: CEREBRUM: The ventricles are normal for age. No evidence of midline shift, mass lesion, hemorrhage or acute in farction. No extra-axial fluid collections are seen. POSTERIOR FOSSA: The cerebellum and brainstem are intact. The 4th ventricle is midline. The cerebellopontine angle i s unremarkable. EXTRACRANIAL: The visualized portion of the orbits is intact. Bilateral maxillary sinus surgery. Paranasal sinuses are grossly clear. SKULL: The calvaria is intact. No evidence of skull fracture. CONCLUSION: 1. No acute intracranial abnormality. Maxim Sequeira MD on March 02, 2017 at 16:21 Board Certified Radiologist. This report was verified electronically.
[2017-03-02] MEDS ORDERED: MORPHINE SULFATE 2 MG/ML INJ IV PUSH ONE (16:30)
[2017-03-02] MEDS ORDERED: PHENYTOIN INJ 1,000 MG in SODIUM CHLORIDE 0.9% INJ 100 ML IV ONE (16:30)
[2017-03-02] MEDS ORDERED: POTASSIUM CHLORIDE 20 MEQ CONTROLLED RELEASE TAB PO ONE (16:30)
[2017-03-02] MEDS ORDERED: PHEN100C PO (17:59)
== END 2017-03-02 19:39 | disposition home or self-care (01) ==
LOC: NEPC 14:35
DX: G40.909 Epilepsy, unspecified, not intractable, without status epilepticus (principal); R51 Headache; J45.909 Unspecified asthma, uncomplicated; F41.9 Anxiety disorder, unspecified; F32.9 Major depressive disorder, single episode, unspecified; E78.00 Pure hypercholesterolemia, unspecified; M79.7 Fibromyalgia; K21.9 Gastro-esophageal reflux disease without esophagitis; M19.90 Unspecified osteoarthritis, unspecified site
CPT/HCPCS: 70450; 80053; 80185; 85025; 96365; 96375; 99285; J1165; J2270

== ENCOUNTER → 2017-04-27 | Day surgery (SDC) | payer OTHER ==
[~2017-04-27] VITALS: Ht 154.9 cm; Wt 56.5 kg
[~2017-04-27] MED LIST changes: +*Lactated Ringer's INJ 1,000 ML ONE; +*MEPERIDINE 25 MG INJ VIAL PERIprocedural Use ONLY ONE; +ACETAMINOPHEN/HYDROcodone 325 MG/5 MG TAB ONE; +BUPIVACAINE/EPINEPHRINE 0.5% PF 30 ML VIAL ONE; +CHLORHEXIDINE GLUCONATE 2 % 1 PACK (2 CLOTHS) TOPICAL PRN; +CHLORHEXIDINE GLUCONATE 4% SOLN 120 ML BTL TOPICAL SCH; +DULE100A INH; +LACTATED RINGER'S 1000 ML INJ 1,000 ML ONE; +LACTATED RINGER'S 1000 ML IV PRN; +METOPROLOL TARTRATE 25 MG TAB PO PRN; +MIDAZOLAM HCL 2 MG/2 ML VIAL ONE; +MORPHINE SULFATE 4 MG/ML INJ ONE; +PHEN100C PO; +POVIDONE IODINE 5% (ANTISEPSIS KIT) 4 APPLICATIONS EACH NARE PRN; +SODIUM CHLORID 0.9% 500 ML IV PRN; +TRIAMCINOLONE ACETONIDE 40 MG/ML VIAL ONE; +VANCOMYCIN 1000 MG/NS 250 ML (for <70 kg) IV SCH; +ceFAZolin 2 GM PREMIX 50 ML IV SCH
[2017-04-27 11:04] VITALS: PULSE 75
--- NOTE | 2017-04-27 11:17 | MP ---
cc: ANGEL MERLOS M.D. DATE OF OPERATION 04/27/[address] Angel Merlos PREOPERATIVE DIAGNOSIS Chronic trochanteric bursitis of the left hip. POSTOPERATIVE DIAGNOSIS Chronic trochanteric bursitis of the left hip with the iliotibial compression. PROCEDURE Arthroscopic debridement and synovectomy and excision of trochanteric bursa and release of the iliotibial band. DETAILS OF PROCEDURE The patient was first placed on the operating room table in the supine position and adequate general anesthesia was administered by Dr. Krishnamurthy, the anesthesiologist. The patient was then transferred into the right lateral decubitus position and the left hip prepped and draped in the usual sterile fashion. A time-out was called and the patient's name, procedure and location were fully confirmed. An 18-gauge spinal needle was then placed into the midportion of the greater trochanter and then 5 cm distal and 5 cm proximal to that needle stab wounds were made. The arthroscope was first placed proximally through that stab wound, preceded by a sharp and blunt trocar. The resector was placed distally and a resection of subcutaneous tissue was carried out so as to visualize the ArthroWand as well as to visualize the spinal needle. The resector was then replaced with an ArthroWand and an ablation and electrocautery was carried out removing the iliotibial band longitudinally and also removing the underlying trochanteric bursa. This was carried down to the greater trochanter and spinal needle. We were able to obtain adequate exposure proximally and distally through these two stab wounds. The underlying soft tissues were removed distally and proximally and we were able to expose the external rotators and gluteus medius all of which appeared to be intact. After thorough irrigation of debris, all instruments were removed and the two stab wounds closed with 3-0 nylon suture. Through the spinal needle which was reinserted, I then injected 10 cc of 0.25% Marcaine with epinephrine along with 1 cc of Kenalog. Bulky dressing was applied. Sponge count, needle counts and instrument counts were reported correct x2. The estimated blood loss was nil. The patient tolerated the procedure well and went to the recovery room in satisfactory and stable condition. Angel Merlos MD [facility] /10:45 AM /12:44 PM
[2017-04-27 12:00] VITALS: TEMP 97.4
[2017-04-27 12:30] VITALS: PULSE 65
[2017-04-27 13:05] VITALS: BP 96/58; PULSE 68; RESP 14; O2SAT 99
== END | disposition home or self-care (01) ==
LOC: PHSDC 07:50
PROVIDERS: ATTEND Orthopaedic Surgery
DX: M70.62 Trochanteric bursitis, left hip (principal)
CPT/HCPCS: 01202; 29863; E0113; J0690; J2175; J2250; J2270; J3301; J3370; J7050; J7120

== ENCOUNTER 2017-05-12 13:19 | Emergency (ER) | payer OTHER | END 2017-05-12 14:24 | disposition home or self-care (01) | LOC: PHEFT 13:19 | DX: T81.30XA Disruption of wound, unspecified, initial encounter (principal) | CPT/HCPCS: 99281 ==

== ENCOUNTER 2017-05-14 13:12 | Observation (INO) | payer OTHER ==
[~2017-05-14] VITALS: Ht 154.9 cm; Wt 57.0 kg
[~2017-05-14 13:12] MED LIST changes: -*Lactated Ringer's INJ 1,000 ML ONE; -*MEPERIDINE 25 MG INJ VIAL PERIprocedural Use ONLY ONE; -ACETAMINOPHEN/HYDROcodone 325 MG/5 MG TAB ONE; -ADVA100A INH; -ASPI-516 CHEW; -BUPIVACAINE/EPINEPHRINE 0.5% PF 30 ML VIAL ONE; -CHLORHEXIDINE GLUCONATE 2 % 1 PACK (2 CLOTHS) TOPICAL PRN; -CHLORHEXIDINE GLUCONATE 4% SOLN 120 ML BTL TOPICAL SCH; -CITA20TA4 PO; -DICY10 PO; -IBUP1TAB7 PO; -LACTATED RINGER'S 1000 ML INJ 1,000 ML ONE; -LACTATED RINGER'S 1000 ML IV PRN; -METOPROLOL TARTRATE 25 MG TAB PO PRN; -MIDAZOLAM HCL 2 MG/2 ML VIAL ONE; -MORPHINE SULFATE 4 MG/ML INJ ONE; -POVIDONE IODINE 5% (ANTISEPSIS KIT) 4 APPLICATIONS EACH NARE PRN; -SODIUM CHLORID 0.9% 500 ML IV PRN; -TOPI100 PO; -TRIAMCINOLONE ACETONIDE 40 MG/ML VIAL ONE; -VANCOMYCIN 1000 MG/NS 250 ML (for <70 kg) IV SCH; -ceFAZolin 2 GM PREMIX 50 ML IV SCH
[2017-05-14 13:14] VITALS: BP 127/58; PULSE 105; RESP 16; TEMP 99.1; O2SAT 98
[2017-05-14] MEDS ORDERED: AMBI5TAB PO (15:53)
[2017-05-14] MEDS ORDERED: TRAZ100T10 PO (15:53)
[2017-05-14] MEDS ORDERED: HYDR-3288 PO (15:53)
[2017-05-14] MEDS ORDERED: ONDANSETRON HCL 4 MG/2 ML VIAL IV PUSH ONE (16:00)
[2017-05-14] MEDS ORDERED: MORPHINE SULFATE 2 MG/ML INJ IV PUSH ONE ×2 (16:00→17:45)
--- NOTE | 2017-05-14 16:19 | PD ---
HPI . Left hip pain Chief Complaint: Medical Clearance Time Seen by Provider: 15:41 Travel History International Travel<30 days: No Contact w/Intl Traveler<30days: No Traveled to known affect area: No History of Present Illness HPI This patient is status post surgery on her left hip on 04/27 she has a history of chronic greater trochanteric bursitis. She was taken to the operating room for debridement synovectomy and excision of the trochanteric bursa. Sutures were removed on the . The patient presents to us today complaining with acutely increased pain and bleeding from the surgical site. This started last night. It is continuous. It is rated 10/10. It is exacerbated by movement and palpation. She reports an associated fever of 101-102. She also has vomiting. PFSH Past Medical History Asthma: Yes Anxiety: Yes Depression: Yes Heart Rhythm Problems: No Cancer: No Cardiac Catheterization: No Cardiovascular Problems: Yes (abnormal ekgs,HIGH CHOLESTEROL) High Cholesterol: Yes Congestive Heart Failure: No Diabetes: No Diminished Hearing: No Endocrine: No Fibromyalgia: Yes Gastrointestinal Disorders: Yes (GERD) Genitourinary: No Hepatitis: No Hiatal Hernia: Yes Immune Disorder: No Medical other: Yes (FIBROMYALGIAL;OA RIGHT KNEE;RIGHT ROTATOR CUFF TEAR AND IMPINGEMENT SYNDROM) Musculoskeletal: Yes (HERNIATED DISC CERVICAL/LUMBAR, ARTHRITIS;LEFT HIP PAIN; RIGHT ROTATOR CUFF ) Neurologic: Yes (MIGRAINES) Psychiatric: Yes (DEPRESSION) Reproductive: No Respiratory: Yes (ASTHMA) Immunizations Current: Yes Migraines: Yes Thyroid Disease: No ?: Not Past Surgical History Abdominal Surgery: Yes (CHOLECYSTECTOMY) AICD: No Body Medical Devices: CERVICAL PLATE Cardiac Surgery: Yes (CATH) Cholecystectomy: Yes Coronary Artery Bypass Graft: No Ear Surgery: No Endocrine Surgery: No Eye Surgery: No Genitourinary Surgery: No Gynecologic Surgery: Yes (HYSTERECTOMY) Hysterectomy: Yes Joint Replacement: No Oral Surgery: No Pacemaker: No Thoracic Surgery: No Other Surgery: Yes (SINUS SURGERY CARPAL TUNNEL LT HIP) Family History Family Myocardial Infarction: Yes (mother at 53, dad at 74) Social History Alcohol Use: No Tobacco Use: No Substance Use: No Allergies-Medications (Allergen,Severity, Reaction): Coded Allergies: latex (Unverified Allergy, Mild, HIVES, 05/14/17) ranitidine (Unverified Allergy, Mild, HIVES, 05/14/17) Reported Meds & Prescriptions Reported Meds & Active Scripts Active Phenytoin Extended 100 Mg Cap 100 Mg PO TID Amlodipine (Amlodipine Besylate) 2.5 Mg Tab 5 Mg PO DAILY Reported Ambien (Zolpidem Tartrate) 5 Mg Tab 5 Mg PO HS PRN Trazodone (Trazodone HCl) 100 Mg Tablet 100 Mg PO HS [place] (Hydrocodone-Acetaminophen) 7.5-325 mg Tab 1 Tab PO Q4H PRN Dulera 120 Act Inh (Mometasone-Formoterol 120 Act Inh) 100-5 Mcg/Act Inh 2 Puff INH BID Vitamin B-12 (Cyanocobalamin) 250 Mcg Tab 250 Mcg PO DAILY Omeprazole 40 Mg Cap 40 Mg PO DAILY Singulair (Montelukast Sodium) 10 Mg Tab 10 Mg PO HS Clonazepam 0.5 Mg Tab 0.5 Mg PO HS Review of Systems Except as stated in HPI: all other systems reviewed are Neg General / Constitutional: Positive: Fever, Chills Gastrointestinal: Positive: Nausea, Vomiting Musculoskeletal: Positive: Pain (left hip pain) Physical Exam Narrative GENERAL: Awake and alert. She seems histrionic. SKIN: Warm and dry. She has bruising of the left lateral thigh compatible with her recent surgery. She has a couple of tiny incisions and some dried blood on her dressings. No active bleeding. No malodorous discharge. The skin is not red or hot. She has a hematoma about the size of a tennis ball on the left lateral 5 and she is very tender there. The hematoma is not red or hot. HEAD: Normocephalic/atraumatic. EYES: Pupils are equal. Extraocular movements are intact. NECK: Normal range of motion. CARDIOVASCULAR: Regular rate and rhythm. RESPIRATORY: Nonlabored respirations. MUSCULOSKELETAL: Atraumatic. NEUROLOGICAL: Nonfocal. PSYCHIATRIC: Appropriate mood and affect. Data Data Last Documented VS Vital Signs Date Time Temp Pulse Resp B/P (MAP) Pulse Ox O2 Delivery O2 Flow Rate FiO2 05/14/17 13:14 99.1 105 16 127/58 (81) 98 Orders Orders Sepsis Workup Initiated (05/14/17 ) Complete Blood Count With Diff (05/14/17 15:55) Comprehensive Metabolic Panel (05/14/17 15:55) Lactic Acid Sepsis Protocol (05/14/17 15:55) Blood Culture (05/14/17 15:55) Ecg Monitoring (05/14/17 15:55) Iv Access Insert/Monitor (05/14/17 15:55) Oximetry (05/14/17 15:55) Ondansetron Inj (Zofran Inj) (05/14/17 16:00) Morphine Inj (Morphine Inj) (05/14/17 16:00) MDM Medical Decision Making Medical Screen Exam Complete: Yes Emergency Medical Condition: Yes Medical Record Reviewed: Yes (please see HPI for pertinent review of records. Other medical history includes asthma, hyperlipidemia, fibromyalgia, depression. ) Differential Diagnosis Differential diagnosis of joint pain includes but is not limited to arthritis, gout, sprain/strain, fracture, dislocation, bursitis Narrative Course This patient presents complaining with left hip pain 17 days postop. She underwent arthroscopic surgery on her left hip because of chronic trochanteric bursitis. She had debridement, synovectomy and excision of her trochanteric bursa. She now reports increased pain or bleeding, fever and vomiting which started last night. Septic workup has been initiated. I have not ordered any radiographic studies of her hip because she does not have any hardware in the hip. Her pain and nausea are being treated with morphine and Zofran pending her workup. Her care will be turned over to the oncoming provider at 5 PM. The patient is afebrile here. Diagnosis Primary Impression: Postoperative pain, acute, hip Qualified Codes: G89.18 - Other acute postprocedural pain; M25.552 - Pain in left hip Additional Impressions: Fever Qualified Codes: R50.9 - Fever, unspecified Vomiting Qualified Codes: R11.2 - Nausea with vomiting, unspecified Condition: Stable Emily Mckeon MD May 14, 2017 16:19
[2017-05-14 16:33] LABS: AUTOMATED NEUTROPHIL # 7.1 TH/MM3 (1.8-7.7); BASOPHIL % 0.3 % (0.0-2.0); EOSINOPHIL # 0.1 TH/MM3 (0-0.4); EOSINOPHIL % 0.7 % (0.0-4.0); HEMOGLOBIN 12.8 GM/DL (11.6-15.3); LYMPH % 12.3 % (9.0-44.0); LYMPHOCYTE # 1.1 TH/MM3 (1.0-4.8); MEAN CELL VOLUME 96.2 FL (80.0-100.0); MEAN CORPUSCULAR HEMOGLOBIN 32.5 PG (27.0-34.0); MEAN CORPUSCULAR HGB CONC 33.8 % (32.0-36.0); MEAN PLATELET VOLUME 6.7 FL (7.0-11.0); MONO % 7.6 % (0.0-8.0); MONOCYTE # 0.7 TH/MM3 (0-0.9); NEUT % 79.1 % (16.0-70.0); PLATELET COUNT 264 TH/MM3 (150-450); RED BLOOD COUNT 3.95 MIL/MM3 (4.00-5.30); RED CELL DISTRIBUTION WIDTH 13.9 % (11.6-17.2)
[2017-05-14] MEDS ORDERED: LORazepam 2 MG/ML VIAL IV PUSH ONE (16:45)
[2017-05-14 16:58] LABS: LACTIC ACID SEPSIS PROTOCOL 2.1 mmol/L (0.4-2.0)
[2017-05-14 16:58] LABS: ALBUMIN 4.1 GM/DL (3.4-5.0); AST (GOT) 16 U/L (15-37); BICARBONATE 23.6 MEQ/L (21.0-32.0); BLOOD UREA NITROGEN 9 MG/DL (7-18); CHLORIDE 106 MEQ/L (98-107); CREATININE 0.84 MG/DL (0.50-1.00); GLOMERULAR FILTRATION RATE 71 ML/MIN (>89); GLUCOSE,RANDOM 98 MG/DL (74-106); SODIUM (NA) 137 MEQ/L (136-145)
[2017-05-14 17:02] LABS: ALKALINE PHOSPHATASE 136 U/L (45-117); ALT (GPT) 27 U/L (10-53); TOTAL BILIRUBIN ADULT 0.4 MG/DL (0.2-1.0); TOTAL PROTEIN 7.4 GM/DL (6.4-8.2)
[2017-05-14 17:39] VITALS: BP 117/68; PULSE 83; RESP 20; O2SAT 98
--- NOTE | 2017-05-14 17:47 | PD ---
Physical Exam Narrative Received sign out from previous team to follow up with labs and reevaluate patient. 51yo F with PMH of fibromyalgia, epilepsy, asthma here with c/o left hip and thigh pain. Pt had arthroscopic surgery of left hip on 04/27/[address] Angel Lorenzo and had debridement, synovectomy, excision of her trochanteric bursa. Pt said she has been having pain but worst since yesterday. Started having nausea and vomiting as well as fever since yesterday. Said she is unable to walk. Pt given morphine, zofran and ativan by previous team and is still in excruciating pain on physical exam. Pt was initially mildly tachycardic at 105 with temp of 99.1F. Sepsis work up was initiated by previous team. Labs reviewed, no leukocytosis. Lactic acid mildly elevated at 2.1. Pt given NS IVF. Blood cultures pending. On exam, pt has ecchymoses in left gluteus laverne to mid lateral femur. +2 sutures from arthroscopic surgery with lower one with some bleeding. Pt is very tender on exam and pain is more in lateral thigh than hip joint. Will do MRI left hip including femur and give more morphine for pain. Discussed with Dr. Albert who is covering Dr. Lorenzo and he said he would be happy to see her tomorrow in the clinic if everything is negative. He does not have privileges at [facility] so orthopedic here would be consulted if needed. Added ESR and c-reactive protein. Vancomycin was initially ordered but cancelled, feel that the pain is more from hematoma and pt has no fever or elevated leukocytosis here. ESR normal. C-reactive protein mildly elevated at 1.53. MRI left hip showed probable hematoma or other complex fluid in lateral thigh measuring 7.7cm in diameter. This is also associated surrounding muscular edema and a small amount of fluid in the trochanteric bursa. No fracture or significant marrow edema. Remainder of left hip unremarkable. No left hip joint effusion. Pt was reevaluated at bedside and still in a lot o pain. Pt said she was walking fine 2 days ago and then less yesterday and unable to walk today. Pt has been given multiple doses of IV morphine and still in severe pain that she cannot walk, will admit her for intractable pain. Discussed with Dr. Guerrero and accepted to her service. Data Data Last Documented VS Vital Signs Date Time Temp Pulse Resp B/P (MAP) Pulse Ox O2 Delivery O2 Flow Rate FiO2 05/14/17 21:34 88 18 94/51 (65) 98 05/14/17 19:39 Room Air 05/14/17 13:14 99.1 Orders Orders Sepsis Workup Initiated (05/14/17 ) Complete Blood Count With Diff (05/14/17 15:55) Comprehensive Metabolic Panel (05/14/17 15:55) Lactic Acid Sepsis Protocol (05/14/17 15:55) Blood Culture (05/14/17 15:55) Ecg Monitoring (05/14/17 15:55) Iv Access Insert/Monitor (05/14/17 15:55) Oximetry (05/14/17 15:55) Ondansetron Inj (Zofran Inj) (05/14/17 16:00) Morphine Inj (Morphine Inj) (05/14/17 16:00) Lorazepam Inj (Ativan Inj) (05/14/17 16:45) Morphine Inj (Morphine Inj) (05/14/17 17:45) Mri Joint Hip W&W/O Contrast (05/14/17 17:37) Vancomycin Inj (Vancomycin Inj) (05/14/17 18:00) Westergren Sedimentation Rate (05/14/17 18:07) C-Reactive Protein (Crp) (05/14/17 18:07) Sodium Chlor 0.9% 1000 Ml Inj (Ns 1000 M (05/14/17 18:30) Gadodiamide Pf Inj (Omniscan Pf Inj) (05/14/17 19:05) Admit Order (Ed Use Only) (05/14/17 21:52) Labs Laboratory Tests Test 05/14/17 16:08 05/14/17 16:09 05/14/17 20:12 White Blood Count 9.0 TH/MM3 Red Blood Count 3.95 MIL/MM3 Hemoglobin 12.8 GM/DL Hematocrit 38.0 % Mean Corpuscular Volume 96.2 FL Mean Corpuscular Hemoglobin 32.5 PG Mean Corpuscular Hemoglobin Concent 33.8 % Red Cell Distribution Width 13.9 % Platelet Count 264 TH/MM3 Mean Platelet Volume 6.7 FL Neutrophils (%) (Auto) 79.1 % Lymphocytes (%) (Auto) 12.3 % Monocytes (%) (Auto) 7.6 % Eosinophils (%) (Auto) 0.7 % Basophils (%) (Auto) 0.3 % Neutrophils # (Auto) 7.1 TH/MM3 Lymphocytes # (Auto) 1.1 TH/MM3 Monocytes # (Auto) 0.7 TH/MM3 Eosinophils # (Auto) 0.1 TH/MM3 Basophils # (Auto) 0.0 TH/MM3 CBC Comment DIFF FINAL Differential Comment Erythrocyte Sedimentation Rate 12 mm/hr Blood Urea Nitrogen 9 MG/DL Creatinine 0.84 MG/DL Random Glucose 98 MG/DL Total Protein 7.4 GM/DL Albumin 4.1 GM/DL Calcium Level 9.0 MG/DL Alkaline Phosphatase 136 U/L Aspartate Amino Transf (AST/SGOT) 16 U/L Alanine Aminotransferase (ALT/SGPT) 27 U/L Total Bilirubin 0.4 MG/DL Sodium Level 137 MEQ/L Potassium Level 3.3 MEQ/L Chloride Level 106 MEQ/L Carbon Dioxide Level 23.6 MEQ/L Anion Gap 7 MEQ/L Estimat Glomerular Filtration Rate 71 ML/MIN C-Reactive Protein 1.53 MG/DL Lactic Acid Level 2.1 mmol/L 1.5 mmol/L MDM Supervised Visit with ELEAZAR: No Diagnosis Primary Impression: Hematoma Admitting Information Admitting Physician Requests: Observation Condition: Stable Nolvia Whittaker DO May 14, 2017 17:46
[2017-05-14] MEDS ORDERED: VANCOMYCIN INJ 850 MG in SODIUM CHLOR 0.9% 250 ML INJ 250 ML IV ONE (18:00)
[2017-05-14] MEDS ORDERED: SODIUM CHLOR 0.9% 1000 ML INJ 1,000 ML IV ONE (18:30)
[2017-05-14] MEDS ORDERED: GADODIAMIDE PF 287 MG/ML 5 ML VIAL (for RAD MRI) IV PUSH ONE (19:05)
[2017-05-14 19:39] VITALS: BP 115/57; PULSE 85; RESP 18; O2SAT 98
--- NOTE | 2017-05-14 20:15 | RADRPT ---
EXAM DATE/TIME: 05/14/2017 18:31 [facility] COMPARISON: No previous studies available for comparison. INDICATIONS : Pain. CONTRAST: 11 cc Omniscan (gadodiamide) IV MEDICAL HISTORY : Gastroesophageal reflux disease. Arthritis. Hypercholesterolemia. SURGICAL HISTORY : Cholecystectomy. Fusion, cervical. Carpal tunnel syndrome. Hysterectomy. Right rotator cuff. Left hip . Sinus. ENCOUNTER: Initial ACUITY: 1 day PAIN SCORE: 7/10 LOCATION: Left thigh. TECHNIQUE: Multiplanar, multisequence MRI examination was performed without contrast and after the intravenous a dministration of gadolinium. FINDINGS: There is a heterogeneous mass in the subcutaneous fat of the left lateral thigh over the greater troc hanter containing some increased T1 signal most characteristic of a hematoma measuring up to 7.7 cm i n diameter. There is edema in the underlying gluteal musculature extending from the iliac wing inferi gregory through the proximal to mid thigh. There is some fluid in the trochanteric bursa. There is no si gnificant marrow edema to suggest fracture. CONCLUSION: 1. Probable hematoma or other complex fluid in the lateral thigh measuring up to 7.7 cm in diameter. There is also associated surrounding muscular edema and a small amount of fluid in the trochanteric b ursa. No fracture or significant marrow edema. Remainder of left hip unremarkable. No left hip joint effusion. Benny Garibay MD on May 14, 2017 at 20:08 Board Certified Radiologist. This report was verified electronically.
[2017-05-14 21:34] VITALS: BP 94/51; PULSE 88; RESP 18; O2SAT 98
[2017-05-14] MEDS ORDERED: ACETAMINOPHEN/HYDROcodone 325 MG/7.5 MG TAB PO PRN (22:15)
[2017-05-14] MEDS ORDERED: NALOXONE HCL 0.4 MG/ML AMP IV PUSH PRN (22:15)
[2017-05-14] MEDS ORDERED: RESP: ALBUTEROL 2.5 MG/IPRATROPIUM 0.5 MG NEB (PRN) NEB (22:15)
[2017-05-14] MEDS ORDERED: BISACODYL 10 MG SUPP RECTAL PRN (22:15)
[2017-05-14] MEDS ORDERED: MAGNESIUM HYDROXIDE SUSP 30 ML CUP PO PRN (22:15)
[2017-05-14] MEDS ORDERED: SODIUM CHLORIDE 0.9% FLUSH 10 ML FLUSH IV FLUSH PRN (22:15)
[2017-05-14] MEDS ORDERED: SENNOSIDES 8.6 MG TAB PO PRN (22:15)
[2017-05-14] MEDS ORDERED: ACETAMINOPHEN 325 MG TAB PO PRN (22:15)
[2017-05-14] MEDS ORDERED: DULERA PO SCH (22:30)
[2017-05-14] MEDS: clonazePAM 0.5 MG TAB PO SCH (23:06)
[2017-05-14] MEDS: MORPHINE SULFATE 2 MG/ML INJ IV PUSH PRN (23:12)
[2017-05-14] MEDS: MONTELUKAST SODIUM 10 MG TAB PO SCH (23:17)
[2017-05-15] VITALS (7 sets, daily range): BP systolic 94–102; BP diastolic 57–59; PULSE 67–97; RESP 18; TEMP 98.1–99.5; O2SAT 96–99
[2017-05-15] MEDS ORDERED: POTASSIUM CHLORIDE 20 MEQ CONTROLLED RELEASE TAB PO ONE (00:15)
--- NOTE | 2017-05-15 00:16 | HHI.HP ---
[facility] Primary Care Physician Rolo Carr MD Admission Diagnosis Intractable pain, hematoma Diagnoses: Travel History International Travel<30 Days: No Contact w/Intl Traveler <30 Da: No Traveled to Known Affected Are: No History of Present Illness 51-year-old female with a past medical history significant for asthma, seizure disorder, depression, chronic back pain, fibromyalgia and arthritis presents to the emergency department for evaluation of left hip pain and inability to ambulate. The patient underwent arthroscopic debridement and synovectomy with excision of trochanteric bursa and release of the IT band on 04/27/[address] Lorenzo. The patient reports she was recovering well until approximately one week ago when she started to have bleeding from her incision. She reports that she has had to perform dressing changes approximately 3-4 times a day because the dressings become saturated and blood. The patient started to notice and on feeling in her left hip yesterday and this morning was awoken from sleep by severe left-sided hip pain. She reports that she is unable to flex her left hip or ambulate. The patient also endorses a fever yesterday to 102 with accompanying nausea and vomiting. MRI of the head shows probable hematoma versus other complex fluid in the lateral thigh. Vital signs: Temperature 97.7 , pulse 85, respirations 16, BP 116/67, pulse ox 98% on room air Review of Systems Positive fever/chills Denies blurry vision, otorrhea, rhinorrhea Denies sore throat and cough No chest pain, palpitations No shortness of breath or wheezing No abdominal pain Denies constipation/diarrhea. Positive nausea/vomiting Positive hip pain Denies focal weakness No rashes Past Family Social History Past Medical History Asthma Seizure disorder Depression Chronic back pain Fibromyalgia Arthritis Past Surgical History Left hip surgery Cholecystectomy Hysterectomy Right rotator cuff Bilateral carpal tunnel release Cervical fusion Reported Medications Reported Meds & Active Scripts Active Phenytoin Extended 100 Mg Cap 100 Mg PO TID Amlodipine (Amlodipine Besylate) 2.5 Mg Tab 5 Mg PO DAILY Reported Ambien (Zolpidem Tartrate) 5 Mg Tab 5 Mg PO HS PRN Trazodone (Trazodone HCl) 100 Mg Tablet 100 Mg PO HS [place] (Hydrocodone-Acetaminophen) 7.5-325 mg Tab 1 Tab PO Q4H PRN Dulera 120 Act Inh (Mometasone-Formoterol 120 Act Inh) 100-5 Mcg/Act Inh 2 Puff INH BID Vitamin B-12 (Cyanocobalamin) 250 Mcg Tab 250 Mcg PO DAILY Omeprazole 40 Mg Cap 40 Mg PO DAILY Singulair (Montelukast Sodium) 10 Mg Tab 10 Mg PO HS Clonazepam 0.5 Mg Tab 0.5 Mg PO HS Allergies: Coded Allergies: latex (Unverified Allergy, Mild, HIVES, 05/14/17) ranitidine (Unverified Allergy, Mild, HIVES, 05/14/17) Family History Both parents with CAD/DM Social History Never smoker. Occasional alcohol. Denies illicit drugs. Physical Exam Vital Signs Vital Signs Date Time Temp Pulse Resp B/P (MAP) Pulse Ox O2 Delivery O2 Flow Rate FiO2 05/14/17 23:26 05/14/17 21:34 88 18 94/51 (65) 98 05/14/17 19:39 85 18 115/57 (76) 98 Room Air 05/14/17 17:39 83 20 117/68 (84) 98 Room Air 05/14/17 13:14 99.1 105 16 127/58 (81) 98 Physical Exam GENERAL: female lying in bed SKIN: Ecchymoses on the left lateral thigh with small incisions with bloody drainage. No surrounding erythema or purulent drainage. HEAD: Atraumatic. Normocephalic. No temporal or scalp tenderness. EYES: Pupils equal round and reactive. Extraocular motions intact. No scleral icterus. No injection or drainage. ENT: Nose without bleeding, purulent drainage or septal hematoma. Throat without erythema, tonsillar hypertrophy or exudate. Uvula midline. Airway patent. NECK: Trachea midline. No JVD or lymphadenopathy. Supple, nontender, no meningeal signs. CARDIOVASCULAR: Regular rate and rhythm without murmurs, gallops, or rubs. RESPIRATORY: Clear to auscultation. Breath sounds equal bilaterally. No wheezes , rales, or rhonchi. GASTROINTESTINAL: Abdomen soft, non-tender, nondistended. No hepato-splenomegaly , or palpable masses. No guarding. MUSCULOSKELETAL: Extremities without clubbing, cyanosis, or edema. No calf tenderness. NEUROLOGICAL: Awake and alert. Cranial nerves II through XII intact. Motor and sensory grossly within normal limits. Normal speech. Laboratory Laboratory Tests Test 05/14/17 16:08 05/14/17 16:09 05/14/17 20:12 White Blood Count 9.0 Red Blood Count 3.95 Hemoglobin 12.8 Hematocrit 38.0 Mean Corpuscular Volume 96.2 Mean Corpuscular Hemoglobin 32.5 Mean Corpuscular Hemoglobin Concent 33.8 Red Cell Distribution Width 13.9 Platelet Count 264 Mean Platelet Volume 6.7 Neutrophils (%) (Auto) 79.1 Lymphocytes (%) (Auto) 12.3 Monocytes (%) (Auto) 7.6 Eosinophils (%) (Auto) 0.7 Basophils (%) (Auto) 0.3 Neutrophils # (Auto) 7.1 Lymphocytes # (Auto) 1.1 Monocytes # (Auto) 0.7 Eosinophils # (Auto) 0.1 Basophils # (Auto) 0.0 CBC Comment DIFF FINAL Differential Comment Erythrocyte Sedimentation Rate 12 Blood Urea Nitrogen 9 Creatinine 0.84 Random Glucose 98 Total Protein 7.4 Albumin 4.1 Calcium Level 9.0 Alkaline Phosphatase 136 Aspartate Amino Transf (AST/SGOT) 16 Alanine Aminotransferase (ALT/SGPT) 27 Total Bilirubin 0.4 Sodium Level 137 Potassium Level 3.3 Chloride Level 106 Carbon Dioxide Level 23.6 Anion Gap 7 Estimat Glomerular Filtration Rate 71 C-Reactive Protein 1.53 Lactic Acid Level 2.1 1.5 Date/Time Source Procedure Growth Status 05/14/17 16:08 Blood Peripheral Aerobic Blood Culture Pending Received 05/14/17 16:08 Blood Peripheral Anaerobic Blood Culture Pending Received Result Diagram: 05/14/17 1608 05/14/17 1608 Caprini VTE Risk Assessment Caprini VTE Risk Assessment: No/Low Risk (score <= 1) Caprini Risk Assessment Model Point Value = 1 Point Value = 2 Point Value = 3 Point Value = 5 Age 41-60 Minor surgery BMI > 25 kg/m2 Swollen legs Varicose veins or History of unexplained or recurrent spontaneous Oral contraceptives or hormone replacement Sepsis (< 1 month) Serious lung disease, including pneumonia (< 1 month) Abnormal pulmonary function Acute myocardial infarction Congestive heart failure (< 1 month) History of inflammatory bowel disease Medical patient at bed rest Age 61-74 Arthroscopic surgery Major open surgery (> 45 min) Laparoscopic surgery (> 45 min) Malignancy Confined to bed (> 72 hours) Immobilizing plaster cast Central venous access Age >= 75 History of VTE Family history of VTE Factor V Leiden Prothrombin [id number] Lupus anticoagulant Anticardiolipin antibodies Elevated serum homocysteine Heparin-induced thrombocytopenia Other congenital or acquired thrombophilia Stroke (< 1 month) Elective arthroplasty Hip, pelvis, or leg fracture Acute spinal cord injury (< 1 month) Prophylaxis Regimen Total Risk Factor Score Risk Level Prophylaxis Regimen 0-1 Low Early ambulation 2 Moderate Order ONE of the following: *Sequential Compression Device (SCD) *Heparin 5000 units SQ BID 3-4 Higher Order ONE of the following medications: *Heparin 5000 units SQ TID *Enoxaparin/Lovenox 40 mg SQ daily (WT < 150 kg, CrCl > 30 mL/min) *Enoxaparin/Lovenox 30 mg SQ daily (WT < 150 kg, CrCl > 10-29 mL/min) *Enoxaparin/Lovenox 30 mg SQ BID (WT < 150 kg, CrCl > 30 mL/min) AND/OR *Sequential Compression Device (SCD) 5 or more Highest Order ONE of the following medications: *Heparin 5000 units SQ TID (Preferred with Epidurals) *Enoxaparin/Lovenox 40 mg SQ daily (WT < 150 kg, CrCl > 30 mL/min) *Enoxaparin/Lovenox 30 mg SQ daily (WT < 150 kg, CrCl > 10-29 mL/min) *Enoxaparin/Lovenox 30 mg SQ BID (WT < 150 kg, CrCl > 30 mL/min) AND *Sequential Compression Device (SCD) Assessment and Plan Assessment and Plan Assessment/plan: 1. Hematoma left lateral thigh Patient status post hip surgery on 04/27/17 MRI of the left hip shows probable hematoma versus other complex fluid in the lateral thigh measuring up to 7.7 cm in diameter H&H stable, monitor Orthopedic surgery consulted, appreciate assistance Morphine for pain 2. Seizure disorder Continue home Dilantin 3. Depression/chronic back pain/fibromyalgia/arthritis Continue home medications FEN Heart healthy diet Electrolytes: Status post by mouth repletion of potassium, follow-up BMP SCDs Fartun Guerrero MD May 15, 2017 00:16
[2017-05-15] MEDS: MORPHINE SULFATE 2 MG/ML INJ IV PUSH PRN ×2 (02:29→08:34)
[2017-05-15 07:20] LABS: AUTOMATED NEUTROPHIL # 4.8 TH/MM3 (1.8-7.7); BASOPHIL % 0.4 % (0.0-2.0); EOSINOPHIL % 0.6 % (0.0-4.0); HEMATOCRIT 34.2 % (35.0-46.0); HEMOGLOBIN 11.7 GM/DL (11.6-15.3); LYMPH % 17.4 % (9.0-44.0); LYMPHOCYTE # 1.2 TH/MM3 (1.0-4.8); MEAN CELL VOLUME 96.5 FL (80.0-100.0); MEAN CORPUSCULAR HEMOGLOBIN 33.1 PG (27.0-34.0); MEAN CORPUSCULAR HGB CONC 34.2 % (32.0-36.0); MONO % 8.8 % (0.0-8.0); MONOCYTE # 0.6 TH/MM3 (0-0.9); NEUT % 72.8 % (16.0-70.0); PLATELET COUNT 246 TH/MM3 (150-450); RED BLOOD COUNT 3.54 MIL/MM3 (4.00-5.30); RED CELL DISTRIBUTION WIDTH 13.8 % (11.6-17.2); WHITE BLOOD COUNT 6.6 TH/MM3 (4.0-11.0)
[2017-05-15 07:41] LABS: CALCIUM 8.8 MG/DL (8.5-10.1); CREATININE 0.71 MG/DL (0.50-1.00)
[2017-05-15] MEDS: SODIUM CHLORIDE 0.9% FLUSH 10 ML FLUSH IV FLUSH SCH ×2 (08:34→21:00)
[2017-05-15] MEDS: amLODIPine BESYLATE 5 MG TAB PO SCH (08:36)
[2017-05-15] MEDS: PHENYTOIN SODIUM 100 MG CAP PO SCH ×3 (08:36→18:33)
[2017-05-15] MEDS: PANTOPRAZOLE SOD 40 MG DELAYED RELEASE TAB PO SCH (08:36)
[2017-05-15] MEDS ORDERED: D5-1/2 NS + KCL 20 MEQ INJ 1,000 ML IV SCH (11:39)
[2017-05-15] MEDS ORDERED: MAGNESIUM HYDROXIDE SUSP 30 ML CUP PO ONE (11:45)
--- NOTE | 2017-05-15 11:47 | HHI.PR ---
Subjective Remarks Follow-up left hip pain. States constant left hip pain not managed with IV morphine. Discussed with nursing staff and Dr. Albert, he recommends pain management and physical therapy evaluation. Objective Vitals Vital Signs Date Time Temp Pulse Resp B/P (MAP) Pulse Ox O2 Delivery O2 Flow Rate FiO2 05/15/17 07:24 99.5 87 18 97/58 (71) 96 05/15/17 03:34 18 05/15/17 00:51 98.1 77 18 102/57 (72) 98 05/14/17 23:26 05/14/17 21:34 88 18 94/51 (65) 98 05/14/17 19:39 85 18 115/57 (76) 98 Room Air 05/14/17 17:39 83 20 117/68 (84) 98 Room Air 05/14/17 13:14 99.1 105 16 127/58 (81) 98 I/O 05/14/17 05/14/17 05/14/17 05/15/17 05/15/17 05/15/17 07:00 15:00 23:00 07:00 15:00 23:00 Intake Total 1000 ml Output Total 600 ml Balance 1000 ml -600 ml Intake IV Total 1000 ml Output Urine Total 600 ml # Voids 1 Result Diagram: 05/15/17 0615 05/15/1715 Imaging Last Impressions Hip MRI 05/14/17 4527 Signed Impressions: Service Date/Time: Sunday, May 14, 2017 18:31 - CONCLUSION: 1. Probable hematoma or other complex fluid in the lateral thigh measuring up to 7.7 cm in diameter. There is also associated surrounding muscular edema and a small amount of fluid in the trochanteric bursa. No fracture or significant marrow edema. Remainder of left hip unremarkable. No left hip joint effusion. Benny Garibay MD Objective Remarks GENERAL: female lying in bed in distress due to pain SKIN: Ecchymoses on the left lateral thigh with small incisions with bloody drainage. No surrounding erythema or purulent drainage. CARDIOVASCULAR: Regular rate and rhythm without murmurs, gallops, or rubs. RESPIRATORY: Clear to auscultation. Breath sounds equal bilaterally. No wheezes , rales, or rhonchi. GASTROINTESTINAL: Abdomen soft, non-tender, nondistended. No guarding. MUSCULOSKELETAL: Extremities without clubbing, cyanosis, or edema. No calf tenderness. Unable to examine back patient in extreme pain with slight movement NEUROLOGICAL: Awake and alert. Cranial nerves II through XII intact. Motor and sensory grossly within normal limits. Normal speech. Procedures none A/P Assessment and Plan 1. Hematoma left lateral thigh Patient status post hip surgery on 04/27/17 MRI of the left hip shows probable hematoma versus other complex fluid in the lateral thigh measuring up to 7.7 cm in diameter H&H stable, monitor Orthopedic surgery consulted, appreciate assistance recommends pain management and PT. No aspiration for now. Patient has no fever, no leukocytosis with normal ESR. CRP elevated at 1.53 Start Lortab and continue IV Morphine for breakthrough pain 2. Seizure disorder Continue home Dilantin and seizure precautions 3. Depression/chronic back pain/fibromyalgia/arthritis Continue home medications 4. Constipation. Start Maria A-Colace FEN Heart healthy diet Electrolytes: Status post by mouth repletion of potassium, follow-up BMP. IV fluid as needed SCDs Jorge Miranda MD May 15, 2017 11:46
[2017-05-15] MEDS: MORPHINE SULFATE 4 MG/ML INJ IV PUSH PRN (13:23)
[2017-05-15] MEDS: ACETAMINOPHEN/HYDROcodone 325 MG/10 MG TAB PO PRN (18:33)
--- NOTE | 2017-05-15 20:29 | HHI.PR ---
Subjective Remarks Orthopaedic Cross Cover Note Mrs. Britton is a ptient of my partner, Dr. Lorenzo who performed a right hip arthroscopic trochanteric bursectomy on 04/27/2017. Post operatively he saw her in the office on 05/03/2017 where the notes state that she was having diffuse tenderness and a fair amount of ecchymosis. She tells me her sutures were removed and she had not been able to walk very far but was able to bear weight. She started to notice some spontaneous drainage from one of the scope incisions the next day and also noticed some swelling of her lateral hip. She called our office near the end of the day on 05/14/2017 telling us she was going to the ER as her pain was worse. I was contacted by the ER on where they told me she was afebrile and had no elevation of her white cell count but she was too painful to ambulate. I informed them that I would come by if she was admitted to cover for Dr. Lorenzo but if possible, see if she can try to ambulate and follow up with me the next day in the office. I was contacted by HARRIETT Mehta 05/15/2017 and they wanted me to see Mrs. Britton since she was unable to go home. I told her I would come by after office hours. I the got a call from Dr. Miranda shortly thereafter telling me she remained painful, had no fever, had no elevation in WBC and that her MRI was done and showed a hematoma or seroma but could not be certain it was not an abscess. I told him that I would be by to see her but discouraged sticking needles in it as it may get infected that way. I came by at 7:20 pm an she was uncomfortable from the pain but said the swelling had improved since she had spontaneously drained a fair amount of blood from her incision. She still is having difficulty with bed mobility but is perhaps a little better than last night. She has been afebrile the entire admssion so far. She does not look toxic. Objective Vital Signs Date Time Temp Pulse Resp B/P (MAP) Pulse Ox O2 Delivery O2 Flow Rate FiO2 05/15/17 16:15 98.8 91 18 96/59 (71) 98 05/15/17 12:17 98.9 86 18 94/59 (71) 99 05/15/17 07:24 99.5 87 18 97/58 (71) 96 05/15/17 03:34 18 05/15/17 00:51 98.1 77 18 102/57 (72) 98 05/14/17 23:26 05/14/17 21:34 88 18 94/51 (65) 98 \ Result Diagram: 05/15/17 0615 05/15/17 0615 Objective Remarks She is able to lift her left leg from the bed a few inches and tolerates internal and external rotation in a 30 degree arc. She has significant ecchymosis both anterior and lateral as well as posteriorly. I see two arthroscpic incisions; one open with some active bloody serous drainage and one closed covered by a butterfly bandaid. There is no surrounding cellulitis or any evidence of purulent drainage. Her swelling by her report is much improved since it drained. There is no induration at all. Her thigh is soft in all compartments and she can fire her quad, hamstrings and adductors. there is no suggestion of compartment syndrome present. I can flex her hip 45 degrees and she has slight bursal discomfort but no groin pain. She is neurovascularly intact distally with a negative homans sign. I assited changing her bandage, marked her area of ecchymosis with a marker and applied a clean dry dressing, especially to cover the incisions and to be able to measure the drainage easier. Her labs show no significant concern for infection but here CRP is at 1.53 ( normal less than0.3) but this can be slightly elevated from surgery and hematoma. Blood cultures are negative and there is no significant left shift. Her MRI reviewed tonight does show an accumulation of fluid around the greater trochanter measuring 7-8 cm (2-3 inches), not massive by any means. There is no gas in the tissues of evidence of bone edema or effusion inthe hip joint. Vital Signs Assessment and Plan Remarks Impression: S/p left hip arthroscopic trochanteric bursectomy with post operative hematoma and seroma that has spontaneously decompressed. Plan: Now that she has decompressed, I expect her pain to improve and her to make progress in PT as long as she is adequately medicated with analgesics. I will look at her daily and follow her closely. She may need rehab placement if she progresses slowly. She does have a history of fibromyalgia and has been followed by interventional pain management for several years and is on chronic opiates so her tolerance may be higher than usual to get adequate control. I have been informed that Moe Gore is also consulting on her case and has her NPO I imagine to keep all options open but I see no need to open her at this time. I will follow her as well for Dr. Lorenzo.. Madhu Albert MD May 15, 2017 20:29
[2017-05-15] MEDS ORDERED: diphenhydrAMINE HCL 25 MG CAP PO ONE (22:15)
[2017-05-15] MEDS: DOCUSATE SODIUM 50 MG/SENNA 8.6 MG TAB PO SCH (22:45)
[2017-05-15] MEDS: clonazePAM 0.5 MG TAB PO SCH (22:45)
[2017-05-15] MEDS: MONTELUKAST SODIUM 10 MG TAB PO SCH (22:45)
[2017-05-15] MEDS: DULERA PO SCH (22:46)
[2017-05-16 00:39] VITALS: BP 96/63; PULSE 90; RESP 16; TEMP 98.7; O2SAT 96
[2017-05-16 04:28] VITALS: BP 90/54; PULSE 83; RESP 18; TEMP 98.3; O2SAT 96
[2017-05-16 08:02] VITALS: BP 103/58; PULSE 81; RESP 18; TEMP 98; O2SAT 97
[2017-05-16] MEDS: amLODIPine BESYLATE 5 MG TAB PO SCH (09:00)
[2017-05-16] MEDS ORDERED: MAGNESIUM CITRATE SOLN 300 ML BTL PO ONE (09:15)
[2017-05-16] MEDS: PANTOPRAZOLE SOD 40 MG DELAYED RELEASE TAB PO SCH (09:50)
[2017-05-16] MEDS: PHENYTOIN SODIUM 100 MG CAP PO SCH ×3 (09:50→18:36)
[2017-05-16] MEDS: DOCUSATE SODIUM 50 MG/SENNA 8.6 MG TAB PO SCH ×2 (09:50→20:31)
[2017-05-16] MEDS: SODIUM CHLORIDE 0.9% FLUSH 10 ML FLUSH IV FLUSH SCH ×2 (09:51→20:30)
[2017-05-16] MEDS: DULERA PO SCH ×2 (09:59→20:31)
[2017-05-16] MEDS ORDERED: D5-1/2 NS + KCL 20 MEQ INJ 1,000 ML IV PRN (11:39)
[2017-05-16] MEDS ORDERED: MORPHINE SULFATE 2 MG/ML INJ SQ ONE (12:30)
--- NOTE | 2017-05-16 12:36 | HHI.PR ---
Subjective Remarks Orthopaedic Cross Cover Note Mrs. Britton is more comfortable today and remained afebrile overnight. She continues to have some bloody serous drainage, more significant after repositioning and standing briefly. She complains of feeling bloated and did not tolerate trying to walk very well but did better than yesterday. Objective Vital Signs Date Time Temp Pulse Resp B/P (MAP) Pulse Ox O2 Delivery O2 Flow Rate FiO2 05/16/17 08:02 98.0 81 18 103/58 (73) 97 05/16/17 04:28 98.3 83 18 90/54 (66) 96 05/16/17 00:39 98.7 90 16 96/63 (74) 96 05/15/17 21:15 98.7 97 18 99/58 (72) 97 05/15/17 20:40 18 05/15/17 16:15 98.8 91 18 96/59 (71) 98 05/15/17 15:00 67 I/O 05/15/17 05/15/17 05/15/17 05/16/17 05/16/17 05/16/17 07:00 15:00 23:00 07:00 15:00 23:00 Intake Total 250 ml Output Total 600 ml Balance -600 ml 250 ml Intake Oral 250 ml Output Urine Total 600 ml # Voids 1 3 3 Result Diagram: 05/15/1715 05/15/17 0615 Objective Remarks Her overall demeanor is improved and her pain is better. She required no IV opiates today so far. Her left hip dressing was changed and the ecchymosis is decreasing and there is still no induration or cellulitis. Her hip motion remains smooth and does not reproduce pain like pressure over the bursa does. There was bloody serous drainage , 3 inches on the ABD, and no foul smell. Her compartments all remain soft and she has a negative Katlyn's sign. Her CBC order in writing was missed but I put it in by computer today and is pending. Assessment and Plan Assessment and Plan Imp: Improving left hip trochanteric bursa hematoma following arthroscopic debridement Still no clinical evidence of infection Plan: I want PT to continue to make attempts to mobilize her. I asked that they try 2 mg morphine prior to getting her up to improve her tolerance. Expect drainage to continue but it does not look like active bleeding. As soon as she can get bed to chair she should be able top get by at home. She may continue to drain for a week or more longer. Keeping the site dressed is ideal to keep it clean and to follow how much comes out. I still do not see any benefit of surgical debridement at this time. Madhu Albert MD May 16, 2017 12:36
[2017-05-16 12:38] VITALS: BP 105/60; PULSE 98; RESP 18; TEMP 98.2; O2SAT 100
--- NOTE | 2017-05-16 13:59 | HHI.PR ---
Subjective Remarks Follow-up left hip hematoma. Improving pain but has not been out of bed. No fever. Discussed with orthopedic surgery Objective Vitals Vital Signs Date Time Temp Pulse Resp B/P (MAP) Pulse Ox O2 Delivery O2 Flow Rate FiO2 05/16/17 12:38 98.2 98 18 105/60 (75) 100 05/16/17 08:02 98.0 81 18 103/58 (73) 97 05/16/17 04:28 98.3 83 18 90/54 (66) 96 05/16/17 00:39 98.7 90 16 96/63 (74) 96 05/15/17 21:15 98.7 97 18 99/58 (72) 97 05/15/17 20:40 18 05/15/17 16:15 98.8 91 18 96/59 (71) 98 05/15/17 15:00 67 I/O 05/15/17 05/15/17 05/15/17 05/16/17 05/16/17 05/16/17 07:00 15:00 23:00 07:00 15:00 23:00 Intake Total 250 ml Output Total 600 ml Balance -600 ml 250 ml Intake Oral 250 ml Output Urine Total 600 ml # Voids 1 3 3 Result Diagram: 05/15/17 0615 05/15/17 0615 Imaging Last Impressions Abdomen X-Ray 05/16/17 0000 Signed Impressions: Service Date/Time: Tuesday, May 16, 2017 14:49 - CONCLUSION: Mild gaseous distention of colon without obstruction. Tony Chan MD Hip MRI 05/14/17 1737 Signed Impressions: Service Date/Time: Sunday, May 14, 2017 18:31 - CONCLUSION: 1. Probable hematoma or other complex fluid in the lateral thigh measuring up to 7.7 cm in diameter. There is also associated surrounding muscular edema and a small amount of fluid in the trochanteric bursa. No fracture or significant marrow edema. Remainder of left hip unremarkable. No left hip joint effusion. Benny Garibay MD Objective Remarks GENERAL: female lying in bed in distress due to pain SKIN: Ecchymoses on the left lateral thigh with small incisions with bloody drainage. No surrounding erythema or purulent drainage. CARDIOVASCULAR: Regular rate and rhythm without murmurs, gallops, or rubs. RESPIRATORY: Clear to auscultation. Breath sounds equal bilaterally. No wheezes , rales, or rhonchi. GASTROINTESTINAL: Abdomen soft, non-tender, nondistended. No guarding. MUSCULOSKELETAL: Extremities without clubbing, cyanosis, or edema. No calf tenderness. NEUROLOGICAL: Awake and alert. Cranial nerves II through XII intact. Motor and sensory grossly within normal limits. Normal speech. Procedures none A/P Problem List: (1) Postoperative pain, acute, hip ICD Code: G89.18 - Other acute postprocedural pain; M25.559 - Pain in unspecified hip Status: Acute Assessment and Plan 1. Hematoma left lateral thigh. Patient status post hip surgery on 04/27/17 MRI of the left hip shows probable hematoma versus other complex fluid in the lateral thigh measuring up to 7.7 cm in diameter H&H stable, monitor Orthopedic surgery consulted, appreciate assistance recommends pain management and PT. No aspiration for now since there is no evidence of infection. Continue pain management with Lortab and continue IV Morphine for breakthrough pain 2. Seizure disorder Continue home Dilantin and seizure precautions 3. Depression/chronic back pain/fibromyalgia/arthritis Continue home medications 4. Constipation. Mag citrate 1 and continue Maria A-Colace FEN Heart healthy diet Electrolytes: Status post by mouth repletion of potassium, follow-up BMP. IV fluid as needed SCDs Discharge Planning Not stable for discharge patient denies to increase exercise tolerance/ activity. Likely will need rehabilitation but no SNF benefits. Discussed with case management will arrange for home healthcare PT and visiting nurse when ready Problem Qualifiers (1) Postoperative pain, acute, hip: Qualified Codes: G89.18 - Other acute postprocedural pain; M25.552 - Pain in left hip Jorge Miranda MD May 16, 2017 13:59
--- NOTE | 2017-05-16 15:03 | RADRPT ---
EXAM DATE/TIME: 05/16/2017 14:49 [facility] COMPARISON: No previous studies available for comparison. INDICATIONS : Ileus. Abdominal distention. MEDICAL HISTORY : Gastroesophageal reflux disease. Arthritis. Hypercholesterolemia SURGICAL HISTORY : Cholecystectomy. Fusion, cervical. Carpal tunnel syndrome. Hysterectomy.Right rotator cuff. Left hip. Sinus. ENCOUNTER: Subsequent ACUITY: 2 days PAIN SCORE: 10/10 LOCATION: abdomen. FINDINGS: Supine view of the abdomen was performed. Gaseous distention of colon without obstruction. No abnorm al masses, calcifications, or organomegaly is seen. The osseous structures are unremarkable. CONCLUSION: Mild gaseous distention of colon without obstruction. Tony Chan MD on May 16, 2017 at 15:00 Board Certified Radiologist. This report was verified electronically.
[2017-05-16 16:47] VITALS: BP 118/64; PULSE 101; RESP 18; TEMP 98; O2SAT 97
[2017-05-16] MEDS: ACETAMINOPHEN/HYDROcodone 325 MG/10 MG TAB PO PRN (18:36)
[2017-05-16 19:05] LABS: AMORPHOUS SEDIMENT, URINE OCC; BACTERIA, URINE RARE /hpf; BILIRUBIN, URINE NEG (NEG); BLOOD, URINE NEG (NEG); GLUCOSE,URINE NEG (NEG); KETONE, URINE NEG (NEG); MUCUS URINE FEW /lpf (OCC); NITRITE,URINE NEG (NEG); PH, URINE 7.5 (5.0-8.5); SQUAMOUS EPITHELIAL CELL URINE 1 /hpf (0-5); URINE COLOR YELLOW (YELLW/STRAW); URINE LEUKOCYTE ESTERASE NEG (NEG)
[2017-05-16] MEDS: MONTELUKAST SODIUM 10 MG TAB PO SCH (20:31)
[2017-05-16] MEDS: clonazePAM 0.5 MG TAB PO SCH (20:31)
[2017-05-16 21:00] LABS: AUTOMATED NEUTROPHIL # 5.5 TH/MM3 (1.8-7.7); BASOPHIL % 0.6 % (0.0-2.0); EOSINOPHIL # 0.1 TH/MM3 (0-0.4); EOSINOPHIL % 1.3 % (0.0-4.0); HEMATOCRIT 35.2 % (35.0-46.0); HEMOGLOBIN 11.9 GM/DL (11.6-15.3); LYMPH % 15.9 % (9.0-44.0); LYMPHOCYTE # 1.2 TH/MM3 (1.0-4.8); MEAN CELL VOLUME 96.2 FL (80.0-100.0); MEAN CORPUSCULAR HEMOGLOBIN 32.4 PG (27.0-34.0); MEAN CORPUSCULAR HGB CONC 33.7 % (32.0-36.0); MEAN PLATELET VOLUME 7.3 FL (7.0-11.0); MONO % 6.2 % (0.0-8.0); MONOCYTE # 0.4 TH/MM3 (0-0.9); PLATELET COUNT 281 TH/MM3 (150-450); RED BLOOD COUNT 3.66 MIL/MM3 (4.00-5.30); RED CELL DISTRIBUTION WIDTH 13.5 % (11.6-17.2); WHITE BLOOD COUNT 7.2 TH/MM3 (4.0-11.0)
[2017-05-16 21:22] VITALS: BP 131/68; PULSE 100; RESP 18; TEMP 98; O2SAT 98
[2017-05-17 00:25] VITALS: BP 89/53; PULSE 87; RESP 18; TEMP 98.5; O2SAT 95
[2017-05-17] MEDS: ACETAMINOPHEN/HYDROcodone 325 MG/10 MG TAB PO PRN ×4 (02:55→21:04)
[2017-05-17 04:01] VITALS: BP 109/67; PULSE 80; RESP 17; TEMP 98.3; O2SAT 96
[2017-05-17] MEDS: DOCUSATE SODIUM 50 MG/SENNA 8.6 MG TAB PO SCH ×2 (08:03→21:03)
[2017-05-17] MEDS: SODIUM CHLORIDE 0.9% FLUSH 10 ML FLUSH IV FLUSH SCH ×2 (08:04→21:03)
[2017-05-17] MEDS: PANTOPRAZOLE SOD 40 MG DELAYED RELEASE TAB PO SCH (08:04)
[2017-05-17] MEDS: PHENYTOIN SODIUM 100 MG CAP PO SCH ×3 (08:04→17:34)
[2017-05-17] MEDS: DULERA PO SCH ×2 (08:05→21:04)
[2017-05-17] MEDS: ONDANSETRON HCL 4 MG/2 ML VIAL IVP PRN (08:07)
[2017-05-17 08:45] VITALS: BP 113/68; PULSE 85; RESP 16; TEMP 98.1; O2SAT 98
[2017-05-17] MEDS: amLODIPine BESYLATE 5 MG TAB PO SCH (09:00)
[2017-05-17] MEDS ORDERED: BISACODYL 10 MG SUPP RECTAL ONE (10:00)
[2017-05-17] MEDS ORDERED: SUMAtriptan INJ 6 MG/0.5 ML VIAL SQ ONE (10:00)
--- NOTE | 2017-05-17 11:16 | HHI.PR ---
Subjective Remarks Follow-up left hip hematoma. Improving pain scale of 8 out of 10. Able to ambulate in the room. Vomited 2 because of migraine which started early this morning. Denies abdominal pain. Still no BM and not passing gas with slight abdominal distention. Discussed with RN Objective Vitals Vital Signs Date Time Temp Pulse Resp B/P (MAP) Pulse Ox O2 Delivery O2 Flow Rate FiO2 05/17/17 08:45 98.1 85 16 113/68 (83) 98 05/17/17 04:01 98.3 80 17 109/67 (81) 96 05/17/17 00:25 98.5 87 18 89/53 (65) 95 05/16/17 21:22 98.0 100 18 131/68 (89) 98 05/16/17 16:47 98.0 101 18 118/64 (82) 97 05/16/17 12:38 98.2 98 18 105/60 (75) 100 I/O 05/16/17 05/16/17 05/16/17 05/17/17 05/17/17 05/17/17 07:00 15:00 23:00 07:00 15:00 23:00 Intake Total 250 ml Output Total 350 ml Balance 250 ml -350 ml Intake Oral 250 ml Output Urine Total 350 ml # Voids 3 3 2 4 Result Diagram: 05/16/17200905/15/17 0615 Objective Remarks GENERAL: Well-developed and well-nourished SKIN: Ecchymoses on the left lateral thigh with small incisions with bloody drainage. No surrounding erythema or purulent drainage. CARDIOVASCULAR: Regular rate and rhythm without murmurs, gallops, or rubs. RESPIRATORY: Clear to auscultation. Breath sounds equal bilaterally. No wheezes , rales, or rhonchi. GASTROINTESTINAL: Abdomen soft, non-tender, nondistended. No guarding. MUSCULOSKELETAL: Extremities without clubbing, cyanosis, or edema. No calf tenderness. NEUROLOGICAL: Awake and alert. Cranial nerves II through XII intact. Motor and sensory grossly within normal limits. Normal speech. Procedures none A/P Problem List: (1) Postoperative pain, acute, hip ICD Code: G89.18 - Other acute postprocedural pain; M25.559 - Pain in unspecified hip Status: Acute Assessment and Plan 1. Hematoma left lateral thigh. Patient status post hip surgery on 04/27/17. Improving pain MRI of the left hip shows probable hematoma versus other complex fluid in the lateral thigh measuring up to 7.7 cm in diameter H&H stable, monitor Orthopedic surgery consulted, appreciate assistance recommends pain management and PT. No aspiration for now since there is no evidence of infection. Continue pain management with Lortab and continue IV Morphine for breakthrough pain 2. Seizure disorder Continue home Dilantin and seizure precautions 3. Depression/chronic back pain/fibromyalgia/arthritis Continue home medications 4. Constipation. Still no bowel movement status post milk of magnesia, magnesium citrate and Maria A-Colace. Dulcolax 1 and start MiraLAX. Repeat KUB to evaluate for obstruction 5. Vomiting with onset of migraine. Imitrex 1 FEN Heart healthy diet Electrolytes: Status post by mouth repletion of potassium, follow-up BMP. IV fluid as needed SCDs Discharge Planning Not stable for discharge patient is vomiting now which could be related to migraine. Also suspecting ileus versus SBO Problem Qualifiers (1) Postoperative pain, acute, hip: Qualified Codes: G89.18 - Other acute postprocedural pain; M25.552 - Pain in left hip Jorge Miranda MD May 17, 2017 11:16
--- NOTE | 2017-05-17 11:36 | RADRPT ---
EXAM DATE/TIME: 05/17/2017 10:51 [place] COMPARISON: ABDOMEN KUB ONLY, May 16, 2017, 14:49. INDICATIONS : Abdominal distention. Ileus. MEDICAL HISTORY : Gastroesophageal reflux disease. Arthritis. Hypercholesterolemia.Cholecystectomy. Fusion, cervical. C arpal tunnel syndrome. SURGICAL HISTORY : Hysterectomy.Right rotator cuff. Left hip. Sinus. ENCOUNTER: Subsequent ACUITY: 3 days PAIN SCORE: 10/10 LOCATION: abdomen. FINDINGS: 2 supine AP views of the abdomen. Surgical clips in right upper quadrant. Scattered gas and stool in the colon. Several scattered oval calcific densities likely represent capsules/bowel contents. Degene rative findings of the lumbar spine. Mild gas filled distention of the colon similar to prior study. CONCLUSION: No significant interval change. Mild gaseous distention of the colon. Tang Whitmore MD on May 17, 2017 at 11:32 Board Certified Radiologist. This report was verified electronically.
[2017-05-17 12:17] VITALS: BP 120/62; PULSE 90; RESP 16; TEMP 98.4; O2SAT 98
[2017-05-17] MEDS: POLYETHYLENE GLYCOL 17 GM PKG PO SCH (13:49)
[2017-05-17 16:00] VITALS: BP 118/66; PULSE 84; RESP 20; TEMP 98.6; O2SAT 98
[2017-05-17] MEDS: MORPHINE SULFATE 4 MG/ML INJ IV PUSH PRN (17:35)
[2017-05-17 20:59] VITALS: BP 126/57; PULSE 98; RESP 18; TEMP 98.3; O2SAT 96
[2017-05-17] MEDS: MONTELUKAST SODIUM 10 MG TAB PO SCH (21:03)
[2017-05-17] MEDS: clonazePAM 0.5 MG TAB PO SCH (21:03)
--- NOTE | 2017-05-17 21:06 | HHI.PR ---
Subjective Remarks Orthopaedic Cross Cover Note Mrs. Britton continues to slowly improve. Her hip pain is less and she tolerated walking much better. She has less belly discomfort and had a BM today. She had a migraine that slowed her progress today but feels much better now. She continues to have serous drainage which i expect to continue for some time. Objective Vital Signs Date Time Temp Pulse Resp B/P (MAP) Pulse Ox O2 Delivery O2 Flow Rate FiO2 05/17/17 16:00 98.6 84 20 118/66 (83) 98 05/17/17 12:17 98.4 90 16 120/62 (81) 98 05/17/17 08:45 98.1 85 16 113/68 (83) 98 05/17/17 04:01 98.3 80 17 109/67 (81) 96 05/17/17 00:25 98.5 87 18 89/53 (65) 95 05/16/17 21:22 98.0 100 18 131/68 (89) 98 I/O 05/16/17 05/16/17 05/16/17 05/17/17 05/17/17 05/17/17 07:00 15:00 23:00 07:00 15:00 23:00 Intake Total 250 ml Output Total 350 ml Balance 250 ml -350 ml Intake Oral 250 ml Output Urine Total 350 ml # Voids 3 3 2 4 Result Diagram: 05/16/17200905/15/17 0615 Objective Remarks Her left hip dressing is satuyrated with serous bloody drainage and looks like the bandage I applied yesterday. The surrounding skin is less inflamed and no cellulitis is present. The swelling has dramatically improved and I can apply much more pressure to her hip with less pain. I was able to express more fluid with compression around the site. Still no purulence and no foul smell. Still expect drainage for at least a week. Assessment and Plan Assessment and Plan Imp: Improving left hip trochanteric bursa hematoma following arthroscopic debridement and spontaneous decompression one week after suture removal No clinical evidence of infection Plan: She is much less painful and more mobile today and should be getting very close to be able to go home. She will need [facility] to do daily dressing change and she will need to do it once also. The bursa will continue to drain until the hematoma and seroma is fully decompressed. Hopefully it will seal off as the pressure diminishes. I expect she will drain for another week at home. Ok from my standpoint to d/c Sunday if HHC can be arranged and she can tolerate bed to chair . I will formally order BID dressing change with DSD. Madhu Albert MD May 17, 2017 21:06
[2017-05-18 01:03] VITALS: BP 141/77; PULSE 120; RESP 24; TEMP 96.5; O2SAT 99
[2017-05-18] MEDS: ACETAMINOPHEN/HYDROcodone 325 MG/10 MG TAB PO PRN ×2 (01:07→08:26)
[2017-05-18 07:45] LABS: AUTOMATED NEUTROPHIL # 2.6 TH/MM3 (1.8-7.7); BASOPHIL % 0.5 % (0.0-2.0); EOSINOPHIL # 0.1 TH/MM3 (0-0.4); EOSINOPHIL % 2.8 % (0.0-4.0); HEMOGLOBIN 12.2 GM/DL (11.6-15.3); LYMPH % 30.6 % (9.0-44.0); LYMPHOCYTE # 1.4 TH/MM3 (1.0-4.8); MEAN CELL VOLUME 94.8 FL (80.0-100.0); MEAN CORPUSCULAR HGB CONC 34.8 % (32.0-36.0); MEAN PLATELET VOLUME 6.7 FL (7.0-11.0); MONO % 10.1 % (0.0-8.0); MONOCYTE # 0.5 TH/MM3 (0-0.9); PLATELET COUNT 281 TH/MM3 (150-450); RED BLOOD COUNT 3.69 MIL/MM3 (4.00-5.30); RED CELL DISTRIBUTION WIDTH 13.1 % (11.6-17.2); WHITE BLOOD COUNT 4.6 TH/MM3 (4.0-11.0)
[2017-05-18] MEDS: PANTOPRAZOLE SOD 40 MG DELAYED RELEASE TAB PO SCH (08:25)
[2017-05-18] MEDS: SODIUM CHLORIDE 0.9% FLUSH 10 ML FLUSH IV FLUSH SCH (08:25)
[2017-05-18] MEDS: POLYETHYLENE GLYCOL 17 GM PKG PO SCH (08:25)
[2017-05-18] MEDS: PHENYTOIN SODIUM 100 MG CAP PO SCH (08:26)
[2017-05-18] MEDS: DOCUSATE SODIUM 50 MG/SENNA 8.6 MG TAB PO SCH (08:26)
[2017-05-18] MEDS: amLODIPine BESYLATE 5 MG TAB PO SCH (08:26)
--- NOTE | 2017-05-18 08:26 | HHI.FF ---
Face to Face Verification Diagnosis: (1) Inability to ambulate due to hip (2) Delayed surgical wound healing (3) Postoperative pain, acute, hip Physical Therapy Order: Evaluate and Treat, Improve ambulation Home Health Nursing Order: Medical education Signs/symptoms of disease process Wound care and dressing changes (change dressing twice a day with ABD and 4x4s) I have seen patient Paola Valle on 05/18/17. My clinical findings support the need for the requested home health care services because: Deconditioned w/ increased weakness Limited ability to care for self High risk of falls I certify that my clinical findings support that this patient is homebound because: Post-op weakness Unsteady gait/balance Shama Mann PA-C May 18, 2017 08:26
[2017-05-18] MEDS: ONDANSETRON HCL 4 MG/2 ML VIAL IVP PRN (08:27)
[2017-05-18] MEDS ORDERED: HYDR-3583 PO (08:27)
[2017-05-18] MEDS: DULERA PO SCH (08:27)
[2017-05-18 08:29] VITALS: BP 118/56; PULSE 86; RESP 20; TEMP 98; O2SAT 96
[2017-05-18 08:35] LABS: BICARBONATE 24.6 MEQ/L (21.0-32.0); CALCIUM 8.4 MG/DL (8.5-10.1); CREATININE 0.52 MG/DL (0.50-1.00)
[2017-05-18] MEDS ORDERED: MIRA3350 PO (09:54)
[2017-05-18] MEDS ORDERED: PERI PO (09:54)
[2017-05-18] MEDS ORDERED: ONDA4TAB7 SL (10:08)
[2017-05-18] MEDS ORDERED: WALKER WHEELS/F1 MIS (11:10)
--- NOTE | 2017-05-18 11:25 | HHI.DS ---
Discharge Summary Admission Date May 14, 2017 at 21:54 Discharge Date: May 18, 2017 Admitting Diagnosis Intractable pain, hematoma (1) Postoperative pain, acute, hip ICD Code: G89.18 - Other acute postprocedural pain; M25.559 - Pain in unspecified hip Diagnosis: Principal Status: Acute Procedures none Brief History - From Admission 51-year-old female with a past medical history significant for asthma, seizure disorder, depression, chronic back pain, fibromyalgia and arthritis presents to the emergency department for evaluation of left hip pain and inability to ambulate. The patient underwent arthroscopic debridement and synovectomy with excision of trochanteric bursa and release of the IT band on 04/27/[address] Lorenzo. The patient reports she was recovering well until approximately one week ago when she started to have bleeding from her incision. She reports that she has had to perform dressing changes approximately 3-4 times a day because the dressings become saturated and blood. The patient started to notice and on feeling in her left hip yesterday and this morning was awoken from sleep by severe left-sided hip pain. She reports that she is unable to flex her left hip or ambulate. The patient also endorses a fever yesterday to 102 with accompanying nausea and vomiting. MRI of the head shows probable hematoma versus other complex fluid in the lateral thigh. Vital signs: Temperature 97.7 , pulse 85, respirations 16, BP 116/67, pulse ox 98% on room air CBC/BMP: 05/18/17 0700 05/18/17 0700 Significant Findings Laboratory Tests Test 05/16/17 18:00 05/16/17 20:10 05/18/17 07:00 Urine Turbidity HAZY (CLEAR) Urine Bacteria RARE /hpf (NONE) Urine Mucus FEW /lpf (OCC) Red Blood Count 3.66 MIL/MM3 (4.00-5.30) 3.69 MIL/MM3 (4.00-5.30) Neutrophils (%) (Auto) 76.0 % (16.0-70.0) Mean Platelet Volume 6.7 FL (7.0-11.0) Monocytes (%) (Auto) 10.1 % (0.0-8.0) Blood Urea Nitrogen 6 MG/DL (7-18) Random Glucose 108 MG/DL (74-106) Calcium Level 8.4 MG/DL (8.5-10.1) Potassium Level 3.3 MEQ/L (3.5-5.1) Chloride Level 108 MEQ/L (98-107) Imaging Last Impressions Abdomen X-Ray 05/17/17 0000 Signed Impressions: Service Date/Time: April 10:51 - CONCLUSION: No significant interval change. Mild gaseous distention of the colon. Tang Whitmore MD Hip MRI 05/14/17 1737 Signed Impressions: Service Date/Time: Sunday, May 14, 2017 18:31 - CONCLUSION: 1. Probable hematoma or other complex fluid in the lateral thigh measuring up to 7.7 cm in diameter. There is also associated surrounding muscular edema and a small amount of fluid in the trochanteric bursa. No fracture or significant marrow edema. Remainder of left hip unremarkable. No left hip joint effusion. Benny Garibay MD PE at Discharge GENERAL: Well-developed and well-nourished SKIN: Ecchymoses on the left lateral thigh with small incisions with bloody drainage. No surrounding erythema or purulent drainage. CARDIOVASCULAR: Regular rate and rhythm without murmurs, gallops, or rubs. RESPIRATORY: Clear to auscultation. Breath sounds equal bilaterally. No wheezes , rales, or rhonchi. GASTROINTESTINAL: Abdomen soft, non-tender, nondistended. No guarding. MUSCULOSKELETAL: Extremities without clubbing, cyanosis, or edema. No calf tenderness. NEUROLOGICAL: Awake and alert. Cranial nerves II through XII intact. Motor and sensory grossly within normal limits. Normal speech. Hospital Course 1. Hematoma left lateral thigh. Patient status post hip surgery on 04/27/17. Improving pain with increasing exercise tolerance. Orthopedic surgery consulted , appreciate assistance recommends pain management and PT. No aspiration for now since there is no evidence of infection. Continue pain management with Lortab and continue IV Morphine for breakthrough pain. Wound care 2. Seizure disorder Continue home Dilantin and seizure precautions 3. Depression/chronic back pain/fibromyalgia/arthritis Continue home medications 4. Constipation. Stooling on bowel regimen 5. Migraine. Resolved with Imitrex 1 FEN Heart healthy diet Electrolytes: Status post by mouth repletion of potassium, follow-up BMP. IV fluid as needed SCDs Pt Condition on Discharge: Stable Discharge Disposition: Disch w/ Home Health Serv Discharge Time: > 30 minutes Discharge Instructions DIET: Follow Instructions for: Heart Healthy Diet Activities you can perform: Regular-No Restrictions Follow up Referrals: Orthopedics - 2-3 Days with Madhu Albert MD PCP Follow-up - 1 Week with Rolo Carr MD New Medications: Ondansetron Odt (Ondansetron Odt) 4 Mg Tab 4 MG SL Q8HR PRN for Nausea/Vomiting, #21 TAB 0 Refills Polyethylene Glycol 3350 Powder (Miralax Powder) 17 Gm Powd 17 GM PO DAILY for Constipation, #1 CAN 0 Refills Mix and dissolve one measuring cap-ful (17 grams) in water or juice. Walker with Front Wheels (Walker with Front Wheels) 1 Mis Mis EA .ROUTE DIRECTED, #1 0 Refills Hydrocodone/Acetaminophen (Hydrocodone-Acetamin 10-325 mg) 10 Mg-325 Mg Tablet 1 TAB PO Q4H PRN for pain, #30 TAB Sennosides-Docusate Sodium (Gnp Senna Plus 8.6-50 mg) 8.6 Mg-50 Mg Tab 2 TAB PO BID for constipation, #60 TAB Continued Medications: Amlodipine (Amlodipine) 2.5 Mg Tab 5 MG PO DAILY for Blood Pressure Management, #30 TAB 1 Refill Clonazepam (Clonazepam) 0.5 Mg Tab 0.5 MG PO HS, #60 TAB 0 Refills Cyanocobalamin (Vitamin B-12) 250 Mcg Tab 250 MCG PO DAILY for Nutritional Supplement, #1 BOTTLE 0 Refills Mometasone-Formoterol 120 Act Inh (Dulera 120 Act Inh) 100-5 Mcg/Act Inh 2 PUFF INH BID for Asthma Management, #1 INHALER 0 Refills Montelukast (Singulair) 10 Mg Tab 10 MG PO HS, #30 TAB 0 Refills Omeprazole (Omeprazole) 40 Mg Cap 40 MG PO DAILY, #30 CAP 0 Refills Phenytoin Extended (Phenytoin Extended) 100 Mg Cap 100 MG PO TID for Control Seizures, #90 CAP 0 Refills Trazodone (Trazodone) 100 Mg Tablet 100 MG PO HS for Control Depression, #30 TAB 0 Refills Zolpidem (Ambien) 5 Mg Tab 5 MG PO HS PRN for INSOMNIA, TAB 0 Refills Discontinued Medications: Hydrocodone-Acetaminophen ([place]) 7.5-325 mg Tab 1 TAB PO Q4H PRN for PAIN, TAB 0 Refills Jorge Miranda MD May 18, 2017 11:25
[2017-05-18 12:24] VITALS: BP 120/60; PULSE 80; RESP 20; TEMP 97.9; O2SAT 96
== END 2017-05-18 13:01 | disposition home or self-care (01) ==
LOC: NEPD 13:12 → NEDA 21:54 → NEPGCP 05-15 00:31
PROVIDERS: ADMIT Internal Medicine; ATTEND Internal Medicine
DX: M96.840 Postprocedural hematoma of a musculoskeletal structure following a musculoskeletal system procedure (principal); G89.18 Other acute postprocedural pain; M25.552 Pain in left hip; M54.9 Dorsalgia, unspecified; G89.29 Other chronic pain; M79.7 Fibromyalgia; G40.909 Epilepsy, unspecified, not intractable, without status epilepticus; F32.9 Major depressive disorder, single episode, unspecified; E78.00 Pure hypercholesterolemia, unspecified; G43.909 Migraine, unspecified, not intractable, without status migrainosus; J45.909 Unspecified asthma, uncomplicated; K21.9 Gastro-esophageal reflux disease without esophagitis; K59.00 Constipation, unspecified; M16.12 Unilateral primary osteoarthritis, left hip; M17.11 Unilateral primary osteoarthritis, right knee; M70.62 Trochanteric bursitis, left hip; R79.82 Elevated C-reactive protein (CRP); Z79.891 Long term (current) use of opiate analgesic; Z90.710 Acquired absence of both cervix and uterus
CPT/HCPCS: 73723; 74018; 80048; 80053; 81001; 83605; 85025; 85652; 86140; 87040; 96361; 96372; 96374; 96375; 96376; 97110; 97116; 97163; 99285; A9579; G0378; G8987; G8988; J2060; J2270; J2405; J3030; J3480; J7030